=== PATIENT | male | born 1950 | race Caucasian/White ===

== ENCOUNTER → 2016-04-28 | Outpatient (CLI) | payer BC, OTHER ==
--- NOTE | 2016-04-30 05:56 | SLEEPCENT ---
DATE OF PROCEDURE: 04/28/2016 ORDERED BY: ROCK Knight Nocturnal polysomnography was performed for the titration of pressure therapy in this patient with obstructive sleep apnea syndrome, apnea hypopnea index of 16. For testing, a ResMed Quattro full face mask of medium size was used. 4 cm of water pressure were applied to the circuit and the lights were extinguished. 8 hours and 1 minute of data were reviewed. There were 435 minutes of sleep identified. Sleep latency was prolonged at 19 minutes. Rapid eye movement (REM) latency was prolonged about 170 minutes. Sleep architecture improved over the course of the study with optimal pressure therapy. Overall sleep efficiency was 92.3%. There were 2 REM periods appreciated. The patient's electrocardiogram (EKG) showed a sinus rhythm with an average heart rate of 62 beats per minute. Occasional unifocal ventricular ectopic beats were seen. Electroencephalogram (EEG) showed reasonably normal waveforms for awake and sleep. Respiratory events were found palliated with a CPAP at a pressure of +10 with which the patient slept through REM without respiratory event of oxygen desaturation. Remaining measures of sleep physiology were normal. IMPRESSION: Obstructive sleep apnea syndrome (G47.33). RECOMMENDATION: Nightly use of pressure therapy 10 cm of water.
== END ==
LOC: M SLEEP 19:45
PROVIDERS: ATTEND Nurse Practitioner Adult Health
DX: G47.33 Obstructive sleep apnea (adult) (pediatric) (principal)

== ENCOUNTER → 2017-02-12 | Outpatient (CLI) | payer BC, OTHER, MEDICARE ==
[2017-02-12 09:17] LABS: MEAN CORPUSCULAR HEMOGLOBIN 29.4 pg (27.0-33.0); MEAN CORPUSCULAR HGB CONC 34.2 g/dl (32.0-36.5); PLATELET COUNT, AUTOMATED 203 10^3/uL (150-450); RED CELL DISTRIBUTION WIDTH 13.2 % (11.5-14.5); WHITE BLOOD COUNT 4.2 10^3/uL (4.0-10.0)
[2017-02-12 09:47] LABS: ALBUMIN 3.9 GM/DL (3.2-5.2); ALBUMIN/GLOBULIN RATIO 1.44 (1.00-1.93); BILIRUBIN,TOTAL 0.8 MG/DL (0.2-1.0); CALCIUM LEVEL 9.8 MG/DL (8.8-10.2); CREATININE FOR GFR 1.36 MG/DL (0.70-1.30); POTASSIUM SERUM 4.5 MEQ/L (3.5-5.1); THYROXINE (T4) 7.5 UG/DL (4.5-12.0); TOTAL PROTEIN 6.6 GM/DL (6.4-8.2)
--- NOTE | 2017-02-12 09:48 | REP ---
Chest two views HISTORY: weakness Comparison: 02/05/2016 The lungs are clear. The heart is normal in size. The pulmonary vasculature is normal in appearance. Degenerative change is present in the thoracic spine. IMPRESSION: No acute disease. Signed by Elliott Anderson MD 02/12/2017 09:39 A
--- NOTE | 2017-02-12 20:12 | ECGEPIP ---
Stationary ECG Study [facility] Test Date: 2017-02-12 Pat Name: KAITLYN CHAKRABORTY Department: Room: - Gender: M [employer] Supervisor: RACHELLE : 1950 Requested By: Jalen Flores Order Number: [id number] Reading MD: Halle Ugalde Measurements Intervals [place] Rate: 59 P: 50 [place]: 134 QRS: -5 QRSD: 105 T: 17 QT: 410 QTc: 406 Interpretive Statements SINUS BRADYCARDIA WITH OCCASIONAL SUPRAVENTRICULAR PREMATURE COMPLEXES RIGHT VENTRICULAR CONDUCTION DELAY SIMILAR TO 02/05/16 Electronically Signed On 02-12-2017 20:12:08 EST by Halle Ugalde
== END ==
LOC: M LAB 08:23
PROVIDERS: ATTEND Family Medicine
DX: R53.83 Other fatigue (principal)

== ENCOUNTER → 2017-11-03 | Outpatient (CLI) | payer BC, OTHER, MEDICARE ==
[2017-11-03 07:31] LABS: HEMATOCRIT 44.3 % (42.0-52.0); HEMOGLOBIN 15.2 g/dl (13.5-17.5); MEAN CORPUSCULAR HEMOGLOBIN 29.9 pg (27.0-33.0); MEAN CORPUSCULAR HGB CONC 34.3 g/dl (32.0-36.5); PLATELET COUNT, AUTOMATED 201 10^3/uL (150-450); RED BLOOD COUNT 5.09 10^6/uL (4.30-6.10); RED CELL DISTRIBUTION WIDTH 12.9 % (11.5-14.5); WHITE BLOOD COUNT 4.4 10^3/uL (4.0-10.0)
[2017-11-03 07:46] LABS: ESTIMATED AVERAGE GLUCOSE 123 MG/DL (60-110); HEMOGLOBIN A1c 5.9 %
[2017-11-03 08:07] LABS: ALBUMIN 3.9 GM/DL (3.2-5.2); ALKALINE PHOSPHATASE 51 U/L (45-117); ALT/SGPT 63 U/L (12-78); ANION GAP 7 MEQ/L (8-16); AST/SGOT 22 U/L (7-37); BILIRUBIN,TOTAL 0.7 MG/DL (0.2-1.0); BLOOD UREA NITROGEN 17 MG/DL (7-18); CALCIUM LEVEL 9.1 MG/DL (8.8-10.2); CARBON DIOXIDE LEVEL 33 MEQ/L (21-32); CHLORIDE LEVEL 100 MEQ/L (98-107); CHOLESTEROL LEVEL 162 MG/DL (<200); CHOLESTEROL RISK RATIO 3.375 (<5); CREATININE FOR GFR 1.31 MG/DL (0.70-1.30); GLOMERULAR FILTRATION RATE 58.3 (>49); GLUCOSE, FASTING 111 MG/DL (70-100); HDL CHOLESTEROL 48 MG/DL (>40); IRON (FE) 96 UG/DL (65-175); LDL CHOLESTEROL 87.6 MG/DL (<100); NON-HDL-C 114 MG/DL; PERCENT SATURATION 23.8 % (19.7-50.0); POTASSIUM SERUM 4.2 MEQ/L (3.5-5.1); PROSTATIC SPECIFIC AG MONITOR 1.38 NG/ML (< 4.0); SODIUM LEVEL 140 MEQ/L (136-145); THYROXINE (T4) 8.2 UG/DL (4.5-12.0); TOTAL IRON BINDING CAPACITY 404 UG/DL (250-450); TOTAL PROTEIN 6.5 GM/DL (6.4-8.2); TRIGLYCERIDES LEVEL 132 MG/DL (<150)
[2017-11-03 09:59] LABS: TESTOSTERONE 215 NG/DL (241-827); TOTAL 25(OH) VITAMIN D 51.5 NG/ML (30.0-100.0); TOTAL T3 92.9 NG/DL (60.0-181.0)
== END ==
LOC: M LAB 07:06
DX: I10 Essential (primary) hypertension (principal); E11.9 Type 2 diabetes mellitus without complications; R53.83 Other fatigue; N40.0 Benign prostatic hyperplasia without lower urinary tract symptoms
CPT/HCPCS: 83550

== ENCOUNTER → 2018-05-06 | Outpatient (CLI) | payer BC, OTHER, MEDICARE ==
[2018-05-08 00:07] LABS: TESTOSTERONE FREE (DIRECT) 10.6 pg/mL (6.6-18.1)
== END ==
LOC: M LAB 07:14
PROVIDERS: ATTEND Anesthesiology Pain Medicine
DX: E29.9 Testicular dysfunction, unspecified (principal)

== ENCOUNTER → 2018-09-06 | Outpatient (CLI) | payer BC, OTHER, MEDICARE ==
[2018-09-06 07:41] LABS: HEMATOCRIT 43.5 % (42.0-52.0); HEMOGLOBIN 14.9 g/dl (13.5-17.5); MEAN CORPUSCULAR HEMOGLOBIN 29.2 pg (27.0-33.0); MEAN CORPUSCULAR HGB CONC 34.3 g/dl (32.0-36.5); MEAN CORPUSCULAR VOLUME 85.3 fl (80.0-96.0); PLATELET COUNT, AUTOMATED 193 10^3/uL (150-450)
[2018-09-06 08:19] LABS: ALBUMIN 3.8 GM/DL (3.2-5.2); ALT/SGPT 55 U/L (12-78); BILIRUBIN,TOTAL 0.6 MG/DL (0.2-1.0); BLOOD UREA NITROGEN 16 MG/DL (7-18); CALCIUM LEVEL 9.6 MG/DL (8.8-10.2); CARBON DIOXIDE LEVEL 32 MEQ/L (21-32); CHLORIDE LEVEL 98 MEQ/L (98-107); CHOLESTEROL LEVEL 198 MG/DL (<200); CHOLESTEROL RISK RATIO 3.735 (<5); CREATININE FOR GFR 1.24 MG/DL (0.70-1.30); GLOMERULAR FILTRATION RATE > 60.0 (>49); GLUCOSE, FASTING 123 MG/DL (70-100); HDL CHOLESTEROL 53 MG/DL (>40); LDL CHOLESTEROL 125 MG/DL (<100); NON-HDL-C 145 MG/DL; POTASSIUM SERUM 4.6 MEQ/L (3.5-5.1); PROSTATIC SPECIFIC AG MONITOR 1.48 NG/ML (< 4.00); SODIUM LEVEL 137 MEQ/L (136-145); TOTAL PROTEIN 6.6 GM/DL (6.4-8.2); TRIGLYCERIDES LEVEL 102 MG/DL (<150)
[2018-09-06 08:20] LABS: HEMOGLOBIN A1c 5.8 %
[2018-09-06 10:13] LABS: TESTOSTERONE 218 NG/DL (241-827)
--- NOTE | 2018-09-06 18:40 | ECGEPIP ---
[facility] Test Date: 2018-09-06 Pat Name: KAITLYN CHAKRABORTY Department: Room: - Gender: Male Chief Lifestyle Officer: BRAULIO : 1950 Requested By: Jalen Flores Order Number: [id number] Reading MD: Zack Strauss Measurements Intervals [place] Rate: 63 P: 68 [place]: 152 QRS: QRSD: 114 T: QT: 412 QTc: 423 Interpretive Statements Normal sinus rhythm Incomplete RBBB Nonspecific inferior ST/T-wave abnormalities. No significant change from 02/12/17. Electronically Signed on 09-06-2018 18:39:53 EDT by Zack Strauss
--- NOTE | 2018-09-07 04:06 | REP ---
Clinical: Right hip pain and sciatica. Technique: Frontal view of the pelvis with neutral and frog lateral views of the bilateral hips. Findings: Diffuse enthesopathy is appreciated throughout the pelvis and bilateral hips. Hip joint spaces are symmetric and relatively normal. Increased sclerosis to the acetabular rim with marginal osteophyte formation is appreciated. Small periarticular calcifications are identified bilaterally. No acute fracture dislocation. Impression: Enthesopathy and moderate symmetric degenerative changes. Electronically Signed by Femi Avelar MD 09/07/2018 03:58 A
--- NOTE | 2018-09-07 04:09 | REP ---
Clinical: Back pain. Sciatica. Technique: AP, lateral, bilateral oblique and coned-down views of the lumbosacral spine. Findings: Moderate/early advanced multilevel degenerative disc osteophyte complexes noted throughout the visualized lower thoracic and lumbosacral spine. Findings include osteophytosis, endplate sclerosis, disc space narrowing, and hypertrophic facet changes. No acute fracture / compression injury. No obvious spondylolysis or spondylolisthesis. Impression: Multilevel degenerative spondylosis through the lower thoracic and lumbosacral spine. Electronically Signed by Femi Avelar MD 09/07/2018 04:01 A
--- NOTE | 2018-09-07 04:10 | REP ---
Clinical: Hypertension and fatigue . Comparison: 02/12/2017 . Technique: PA and lateral. Findings: The mediastinum and cardiac silhouette are normal. The lung lakhani are clear and without acute consolidation, effusion, or pneumothorax. Degenerative changes of the thoracic spine noted. Impression: 1. No acute cardiopulmonary process. Electronically Signed by Femi Avelar MD 09/07/2018 04:02 A
== END ==
LOC: M LAB 06:58
PROVIDERS: ATTEND Family Medicine
DX: I10 Essential (primary) hypertension (principal); E11.9 Type 2 diabetes mellitus without complications; N40.0 Benign prostatic hyperplasia without lower urinary tract symptoms; R53.83 Other fatigue; M76.891 Other specified enthesopathies of right lower limb, excluding foot; M76.892 Other specified enthesopathies of left lower limb, excluding foot; M54.30 Sciatica, unspecified side; M47.814 Spondylosis without myelopathy or radiculopathy, thoracic region; M47.817 Spondylosis without myelopathy or radiculopathy, lumbosacral region; I45.10 Unspecified right bundle-branch block

== ENCOUNTER → 2019-10-08 | Outpatient (CLI) | payer BC, OTHER, MEDICARE ==
[2019-10-08 08:16] LABS: HEMATOCRIT 44.3 % (42.0-52.0); HEMOGLOBIN 15.3 g/dl (13.5-17.5); MEAN CORPUSCULAR HEMOGLOBIN 29.4 pg (27.0-33.0); MEAN CORPUSCULAR HGB CONC 34.5 g/dl (32.0-36.5); MEAN CORPUSCULAR VOLUME 85.2 fl (80.0-96.0); PLATELET COUNT, AUTOMATED 197 10^3/uL (150-450); WHITE BLOOD COUNT 4.6 10^3/uL (4.0-10.0)
[2019-10-08 08:52] LABS: ALBUMIN 3.6 GM/DL (3.2-5.2); BILIRUBIN,TOTAL 0.5 MG/DL (0.2-1.0); CALCIUM LEVEL 9.3 MG/DL (8.8-10.2); CHOLESTEROL RISK RATIO 4.163 (<5); CREATININE FOR GFR 1.27 MG/DL (0.70-1.30); POTASSIUM SERUM 4.1 MEQ/L (3.5-5.1); THYROID STIMULATING HORMONE 1.76 uIU/ML (0.358-3.740); TOTAL PROTEIN 6.5 GM/DL (6.4-8.2)
[2019-10-08 08:56] LABS: HEMOGLOBIN A1c 6.2 %
[2019-10-10 08:24] LABS: TOTAL 25(OH) VITAMIN D 91.8 NG/ML (30.0-100.0)
== END ==
LOC: M LAB 07:55
PROVIDERS: ATTEND Family Medicine
DX: I10 Essential (primary) hypertension (principal)
CPT/HCPCS: 36415; 80053; 80061; 82306; 83036; 84403; 84443; 85027; G0103

== ENCOUNTER 2020-02-07 01:59 | Inpatient (IN) | payer BC, OTHER, MEDICARE ==
[~2020-02-07] VITALS: Ht 172.7 cm; Wt 95.2 kg
[2020-02-07] MEDS ORDERED: [UNRECOGNIZED DRUG - CODE] (02:44)
[2020-02-07] MEDS ORDERED: METF500T13 (02:44)
[2020-02-07] MEDS ORDERED: DORZ2SOL5 (02:44)
[2020-02-07] MEDS ORDERED: ATOR1TAB21 (02:44)
[2020-02-07] MEDS ORDERED: TRIA37.53 (02:44)
[2020-02-07] MEDS ORDERED: BIMA01SOL (02:44)
[2020-02-07] MEDS ORDERED: VIIB20TA (02:44)
[2020-02-07] MEDS ORDERED: ARIP1TAB4 (02:44)
[2020-02-07] MEDS ORDERED: AZEL1SPR3 ×2 (02:44→03:51)
[2020-02-07] MEDS ORDERED: ECOT81TA5 PO (02:47)
[2020-02-07] MEDS ORDERED: ABIL1TAB13 PO (03:51)
[2020-02-07] MEDS ORDERED: ATOR1TAB21 PO (03:51)
[2020-02-07] MEDS ORDERED: VIIB20TA PO (03:51)
[2020-02-07] MEDS ORDERED: [UNRECOGNIZED DRUG - CODE] PO (03:51)
[2020-02-07] MEDS ORDERED: BIMA01SOL OU (03:51)
[2020-02-07] MEDS ORDERED: CALC-211 PO (03:51)
[2020-02-07] MEDS ORDERED: TRIA37.53 PO (03:51)
[2020-02-07] MEDS ORDERED: FLON1SPR (03:51)
[2020-02-07] MEDS ORDERED: L-AR1000 PO ×2 (03:51→03:53)
[2020-02-07] MEDS ORDERED: METF-839 PO (03:51)
[2020-02-07] MEDS ORDERED: ASPI-161 PO (03:51)
[2020-02-07] MEDS ORDERED: VITMTA PO (03:51)
[2020-02-07] MEDS ORDERED: COSO1SOL3 OU (03:51)
[2020-02-07] MEDS ORDERED: D31000TA2 PO (03:53)
[2020-02-07] MEDS ORDERED: GNP1000T11 PO (03:53)
[2020-02-07] MEDS ORDERED: OMEG10002 PO (03:53)
[2020-02-07] MEDS ORDERED: COQ1100C5 PO (03:53)
[2020-02-07 04:07] LABS: BASO % 0.8 % (0.0-1.0); EOS # 0.1 10^3/uL (0.0-0.5); HEMOGLOBIN 13.1 g/dl (13.5-17.5); LYMPH # 1.1 10^3/uL (1.5-5.0); LYMPH % 26.9 % (24.0-44.0); MEAN CORPUSCULAR HEMOGLOBIN 28.5 pg (27.0-33.0); MEAN CORPUSCULAR HGB CONC 32.8 g/dl (32.0-36.5); MONO # 0.4 10^3/uL (0.0-0.8); MONO % 10.7 % (0.0-5.0); NEUTROPHILS # 2.3 10^3/uL (1.5-8.5); NEUTROPHILS % 58.3 % (36.0-66.0); PLATELET COUNT, AUTOMATED 189 10^3/uL (150-450); WHITE BLOOD COUNT 3.9 10^3/uL (4.0-10.0)
[2020-02-07 04:21] LABS: INR 0.91; PROTHROMBIN TIME 12.4 SECONDS (12.5-14.3)
[2020-02-07 04:22] LABS: PARTIAL THROMBOPLASTIN TIME 21.7 SECONDS (24.2-38.5)
[2020-02-07 04:35] LABS: ALBUMIN 3.1 GM/DL (3.2-5.2); ALT/SGPT 31 U/L (12-78); BILIRUBIN,DIRECT 0.1 MG/DL (0.0-0.2); BILIRUBIN,TOTAL 0.4 MG/DL (0.2-1.0); BLOOD UREA NITROGEN 19 MG/DL (7-18); CALCIUM LEVEL 8.8 MG/DL (8.8-10.2); CARBON DIOXIDE LEVEL 25 MEQ/L (21-32); CHLORIDE LEVEL 105 MEQ/L (98-107); CPK CREATINE PHOSPHOKINASE 114 U/L (39-308); CREATININE FOR GFR 1.04 MG/DL (0.70-1.30); GLOMERULAR FILTRATION RATE > 60.0 (>49); GLUCOSE, FASTING 116 MG/DL (70-100); LIPASE 74 U/L (73-393); MB/CK RELATIVE INDEX 1.75 (< OR =4); SODIUM LEVEL 138 MEQ/L (136-145); TROPONIN I < 0.02 NG/ML (< 0.10)
[2020-02-07] MEDS ORDERED: ISOVUE-370 76% 100ML VIAL As Ordered ONE (04:49)
--- NOTE | 2020-02-07 05:28 | REPVR ---
PROCEDURE INFORMATION: Exam: CT Abdomen And Pelvis With Contrast Exam date and time: 02/07/2020 4:58 AM Age: 69 years old Clinical indication: Abdominal pain; Localized; Left lower quadrant (llq); Additional info: Llq abd pain, hematachezia TECHNIQUE: Imaging protocol: Computed tomography of the abdomen and pelvis with intravenous contrast. Radiation optimization: All CT scans at this facility use at least one of these dose optimization techniques: automated exposure control; mA and/or kV adjustment per patient size (includes targeted exams where dose is matched to clinical indication); or iterative reconstruction. Contrast material: ISOVUE 370; Contrast volume: 100 ml; Contrast route: INTRAVENOUS (IV); COMPARISON: CR HIPS BILAT W-AP PELVIS 09/06/2018 7:18 AM FINDINGS: Lungs: There is mild bilateral posterior dependent lung atelectasis. Mediastinal space: There is a small sliding hiatal hernia. Liver: Normal. No mass. Gallbladder and bile ducts: Normal. No calcified stones. No ductal dilation. Pancreas: Normal. No ductal dilation. Spleen: Normal. No splenomegaly. Adrenal glands: Normal. No mass. Kidneys and ureters: Normal. No hydronephrosis. Stomach and bowel: There is marked descending and sigmoid colon diverticulosis. There is also mild right colonic diverticulosis. There is mild stranding adjacent to the sigmoid colon. Appendix: No evidence of appendicitis. Intraperitoneal space: Unremarkable. No free air. No significant fluid collection. Vasculature: Coronary vascular calcifications versus stent seen. There is moderate aortic mural calcifications. Lymph nodes: Unremarkable. No enlarged lymph nodes. Urinary bladder: Unremarkable as visualized. Reproductive: Unremarkable as visualized. Bones/joints: There is multilevel lumbar spine facet arthrosis. There is multilevel anterior lower thoracic spine bulky osteophytes. Soft tissues: There is a small right inguinal fat containing hernia. IMPRESSION: 1. Significant descending and sigmoid colon and mild right colonic diverticulosis with CT findings of mild sigmoid diverticulitis. No free air or abscess formation seen at this time. 2. Small right inguinal fat containing hernia. 3. Small sliding hiatal hernia. Electronically signed by: Gonzalez Brasher On 02/07/2020 05:27:23 AM
[2020-02-07] MEDS ORDERED: CIPROFLOXACIN 400 MG in IV 1 EA IV ONE (05:45)
[2020-02-07] MEDS ORDERED: metroNIDAZOLE 500 MG in IV 1 EA IV ONE (05:45)
--- NOTE | 2020-02-07 05:58 | HPEPDOC ---
[facility] Medical History & Physical Date of Admission Feb 07, 2020 Date of Service: Feb 07, 2020 Primary Care Physician: Jalen Parsons Attending Physician: ELIO PIZARRO MD History and Physical TIME OF SERVICE: 537am CHIEF COMPLAINT: Bloody diarrhea HISTORY OF PRESENT ILLNESS: This 69-year-old gentleman been having cramping lower abdominal pain for the last few days. Yesterday evening he presented to the ER with complaints of one episode of a large bowel movement with large amounts of blood. In the ER, he had another episode of blood mixed with stools. He denied having vomiting, fever, chills, rash, chest pain, dyspnea, or any other acute complaints. REVIEW OF SYSTEMS: 12 point review of systems negative except as listed in HPI PAST MEDICAL/ SURGICAL HISTORY: Chronic hypertension Prediabetes Variceal ligation Tonsillectomy Glaucoma SOCIAL HISTORY: He doesn't smoke He drinks alcohol 4 times per week He exercises 5 days a week FAMILY HISTORY: Glaucoma ALLERGIES: Please see below. HOME MEDICATIONS: Please see below. PHYSICAL EXAMINATION: Vital Signs Date Time Temp Pulse Resp B/P (MAP) Pulse Ox O2 Delivery O2 Flow Rate FiO2 02/07/20 01:59 97.4 67 16 142/87 (105) 98 Room Air GEN: well-nourished / well developed/ NAD INTEGUMENT: not flushed HEENT: lips acyanotic /mucus membranes moist and pink CVS: RRR/NMRG/ no JVP / radial pulses intact / no lower extremity edema LUNGS: able to speak full sentences without stopping to take a breath / no coughing / lungs are clear to auscultation bilaterally on room air ABDOMEN: Contour ( obese) / soft & tender with palpation of the lower abdomen MSK/EXTREMITIES: NCAT / range of motion intact in all 4 extremities NEURO: CN 2-12 are grossly intact / speech is not dysarthric PSYCH: alert and oriented to person place and time/ able to understand and follow all commands LABORATORY DATA: 02/07/20 04:00 Laboratory Tests 2 02/07/20 03:16: Coronavirus (COVID-19)(PCR) NEGATIVE 02/07/20 04:00: Immature Granulocyte % (Auto) 0.3, Neutrophils (%) (Auto) 58.3, Lymphocytes (%) (Auto) 26.9, Monocytes (%) (Auto) 10.7H, Eosinophils (%) (Auto) 3.0, Basophils (%) (Auto) 0.8, Neutrophils # (Auto) 2.3, Lymphocytes # (Auto) 1.1L, Monocytes # (Auto) 0.4, Eosinophils # (Auto) 0.1, Basophils # (Auto) 0.0, Nucleated Red Blood Cells % (auto) 0.0, Prothrombin Time 12.4, Prothromb Time International Ratio 0.91, Activated Partial Thromboplast Time 21.7L, Anion Gap 8, Glomerular Filtration Rate > 60.0, Calcium Level 8.8, Total Bilirubin 0.4, Direct Bilirubin 0.1, Aspartate Amino Transf (AST/SGOT) 16, Alanine Aminotransferase (ALT/SGPT) 31, Alkaline Phosphatase 61, Total Creatine Kinase 114, Creatine Kinase MB 2.0, Creatine Kinase MB Relative Index 1.75, Troponin I < 0.02, Total Protein 6.0L, Albumin 3.1L, Albumin/Globulin Ratio 1.1, Lipase 74 IMAGING: CT abdomen and pelvis "IMPRESSION: 1. Significant descending and sigmoid colon and mild right colonic diverticulosis with CT findings of mild sigmoid diverticulitis. No free air or abscess formation seen at this time. 2. Small right inguinal fat containing hernia. 3. Small sliding hiatal hernia." MICROBIOLOGY: Blood cultures pending... ASSESSMENT: Mr. Mobley is a 69 yr is a 69 yr old w a hx of Chronic HTN, Pre-DM, Diverticulitis and IBS who presented with abdominal pain and 2 large bloody BMs and will be admitted for acute diverticulitis. PLAN: 1 . Acute Diverticulitis NO SIRS criterial Plan: admit to medical floor / CLD / PO metronidazole / f/u repeat Hg / hold ASA 2. Chronic hypertension Plan: triamterene & HTCZ 3. Prediabetes? Plan: diabetic diet / f/u accuchecks & A1C / hypoglycemia protocol / sliding scale insulin / hold oral anti-glycemics 4. Glaucoma Plan: Cosopt eye drops 5. Obesity BMI 32.2 complicates care Plan: f/u w PCP for STOP BANG questionnaire DVT PROPHYLAXIS: SCDs DISPOSITION: home after less than 2 midnight's stay Home Medications Scheduled Arginine HCl (l-Arginine) 1,000 Mg Tablet, 1,000 MG PO DAILY Aripiprazole (Abilify) 2 Mg Tablet, 2 MG PO DAILY Aspirin (Aspirin EC) 81 Mg Tablet.dr, 81 MG PO DAILY Atorvastatin Calcium (Atorvastatin Calcium) 20 Mg Tablet, 20 MG PO QHS Azelastine HCl (Azelastine HCl) 0.1% [place].pump, 1 SPRAY NA DAILY Bimatoprost (Lumigan) 0.01% 2.5ML Drops, 1 DROP OU QHS Calcium Carbonate (Calcium) 600 Mg Tablet, 600 MG PO DAILY Cholecalciferol (Vitamin D3) (Vitamin D3) 1,000 Unit Tablet, 1,000 UNITS PO DAILY Dorzolamide HCl/Timolol Maleat (Cosopt Eye Drops) 10 Ml Drops, 1 DROP OU BID Fluticasone Propionate (Flonase Allergy Relief) 9.9 Ml [place].susp, 1 SPRAY NA DAILY Glucosamine Sulfate Dipot Chlr (Glucosamine) 1,000 Mg Tablet, 1,000 MG PO DAILY Metformin HCl (Metformin HCl) 500 Mg Tablet, 500 MG PO DAILY Multivitamins (Thera M Plus Tablet) 1 Each Tablet, 1 TAB PO DAILY [place]-3/Dha/Epa/Fish Oil (Fish Oil 1,000 mg Softgel) 1 Each Capsule, 1 CAP PO BID Testosterone Propionate (Testosterone Propionate) 5,000 Gm Powder, 2 CAP PO BID Triamterene/Hydrochlorothiazid (Triamterene-Hctz 37.5-25 mg Cp) 1 Each Capsule, 1 CAP PO DAILY Ubidecarenone (Co Q-10) 100 Mg Capsule, 100 MG PO DAILY Vilazodone HCl (Viibryd) 20 Mg Tablet, 20 MG PO DAILY Allergies Coded Allergies: Sulfa (Sulfonamide Antibiotics) (Verified Allergy, Unknown, hives, 02/07/20) A-FIB/CHADSVASC A-FIB History Current/History of A-Fib/PAF?: No Current PO Anticoag Therapy: No ELIO PIZARRO MD Feb 07, 2020 05:58
[2020-02-07] MEDS ORDERED: ACETAMINOPHEN TAB 650MG DOSE (2X325MG) PO PRN (06:00)
[2020-02-07] MEDS ORDERED: MAALOX 30 ML SUSP *UDC PO PRN (06:00)
[2020-02-07] MEDS ORDERED: MOM 30ML SUSPENSION UDC PO PRN (06:00)
[2020-02-07 06:30] VITALS: BP 142/82
[2020-02-07] MEDS: HumaLOG INSULIN (NovoLOG) PER UNIT SC SCH ×3 (07:30→17:30)
[2020-02-07] MEDS ORDERED: GLUCOSE 4GM CHEW TABLET PO PRN (08:00)
[2020-02-07] MEDS ORDERED: GLUCAGON INJ 1MG VIAL SC PRN (08:00)
[2020-02-07] MEDS ORDERED: metFORMIN (GLUCOPHAGE) 500 MG TAB PO SCH (08:00)
[2020-02-07] MEDS ORDERED: DEXTROSE 50% 50 ML SYRINGE IV PRN (08:00)
[2020-02-07] MEDS: ARIPiprazole 2 MG TAB PO SCH (09:00)
--- NOTE | 2020-02-07 09:34 | ECGEPIP ---
[facility] - ED Test Date: 2020-02-07 Pat Name: KAITLYN CHAKRABORTY Department: Room: [place] [address] Gender: Male Rehab Services Aide: john : 1950 Requested By: CLIVE Barnes Order Number: [id number] Reading MD: Bethel Segura Measurements Intervals [place] Rate: 64 P: 11 [place]: 146 QRS: 73 QRSD: 115 T: 64 QT: 418 QTc: 434 Interpretive Statements SINUS RHYTHM INCOMPLETE RIGHT BUNDLE BRANCH BLOCK SIMILAR TO 09/06/18 Electronically Signed on 02-07-2020 9:33:46 EST by Bethel Segura
[2020-02-07] MEDS: COSOPT OCUMETER PLUS 10ML (DORZOLAMIDE/TIMOLOL) OU SCH ×2 (09:52→20:03)
[2020-02-07] MEDS: DYAZIDE 37.5/25 CAP (TRIAM/HCTZ) PO SCH (09:52)
[2020-02-07] MEDS: ENOXAPARIN 40MG/0.4ML SYRINGE (J1650 PER 10MG) SC SCH (09:53)
[2020-02-07] MEDS: NS 1,000 ML IV SCH ×2 (11:59→20:02)
[2020-02-07] MEDS: FLUTICASONE PROP 0.05% NASAL SPRAY 16 GM (FLONASE) SCH (12:00)
[2020-02-07] MEDS: OMEGA-3 1000MG CAPSULE PO SCH ×2 (12:00→20:02)
[2020-02-07] MEDS: VITAMIN D 1,000 INTERNATIONAL UNITS TABLET PO SCH (12:00)
[2020-02-07] MEDS: MULTIVITAMINS/MINERALS THERAP 1 TAB PO SCH (12:00)
[2020-02-07] MEDS: AZELASTINE 137MCG NASAL SPY 30 ML (ASTELIN) SCH (12:00)
--- NOTE | 2020-02-07 12:17 | IPNPDOC ---
Text Note Date of Service The patient was seen on 02/07/20. NOTE Subjective:. Patient stated that he had a bowel movement with blood in the mo rning. He denied fever, chills, nausea, vomiting, diarrhea or dysuria Objective: GENERAL APPEARANCE: NAD HEENT: no scleral icterus, no JVD, EOMI CARDIOVASCULAR: S1S2 LUNGS: CTA ABDOMEN: Mild tenderness over left lower quadrant MUSCULOSKELETAL: no cyanosis, no swelling INTEGUMENT: no generalized palor NEUROLOGICAL: cranial nerve function from 2-12 intact intact, follows commands, speech not dysarthric Patient is a 69 yr is a 69 yr old w a hx of Chronic HTN, Pre-DM, Diverticulitis and IBS who presented with abdominal pain and 2 large bloody BMs and will be admitted for acute diverticulitis. PLAN: 1 . Acute Diverticulitis Continue to therapy with metronidazole IV and ciprofloxacin IV Continue clear liquid diet 2. Chronic hypertension Continue home cardioprotective medications 3. Prediabetes? Continue metformin 4. Glaucoma Plan: Cosopt eye drops 5. Obesity BMI 32.2 complicates care DVT PROPHYLAXIS: SCDs VS,Fishbone, I+O VS, Fishbone, I+O Laboratory Tests 02/07/20 04:00 02/07/20 10:17 Vital Signs Date Time Temp Pulse Resp B/P (MAP) Pulse Ox O2 Delivery O2 Flow Rate FiO2 02/07/20 06:30 97.9 67 16 142/82 (102) 97 Room Air YFN SALDANA DO Feb 07, 2020 12:17
[2020-02-07] MEDS: metroNIDAZOLE (FLAGYL) 500MG TABLET PO SCH ×2 (13:39→21:44)
[2020-02-07 14:00] VITALS: BP 139/81
[2020-02-07] MEDS: CIPROFLOXACIN 400 MG in IV 1 EA IV SCH (18:47)
[2020-02-07] MEDS ORDERED: ATORVASTATIN 20 MG TAB PO SCH (21:00)
[2020-02-07] MEDS ORDERED: HumaLOG INSULIN (NovoLOG) PER UNIT SC SCH (21:00)
[2020-02-07 22:00] VITALS: BP 137/81
[2020-02-08] MEDS: CIPROFLOXACIN 400 MG in IV 1 EA IV SCH (05:53)
[2020-02-08] MEDS: metroNIDAZOLE (FLAGYL) 500MG TABLET PO SCH (05:54)
[2020-02-08 06:00] VITALS: BP 105/66
[2020-02-08 06:02] LABS: HEMATOCRIT 38.6 % (42.0-52.0); HEMOGLOBIN 12.7 g/dl (13.5-17.5); MEAN CORPUSCULAR HEMOGLOBIN 28.7 pg (27.0-33.0); MEAN CORPUSCULAR HGB CONC 32.9 g/dl (32.0-36.5); MEAN CORPUSCULAR VOLUME 87.1 fl (80.0-96.0); PLATELET COUNT, AUTOMATED 179 10^3/uL (150-450); RED BLOOD COUNT 4.43 10^6/uL (4.30-6.10); WHITE BLOOD COUNT 3.7 10^3/uL (4.0-10.0)
[2020-02-08 06:33] LABS: BLOOD UREA NITROGEN 10 MG/DL (7-18); CALCIUM LEVEL 8.9 MG/DL (8.8-10.2); CARBON DIOXIDE LEVEL 27 MEQ/L (21-32); CHLORIDE LEVEL 104 MEQ/L (98-107); CREATININE FOR GFR 0.98 MG/DL (0.70-1.30); GLOMERULAR FILTRATION RATE > 60.0 (>49); GLUCOSE, FASTING 113 MG/DL (70-100); POTASSIUM SERUM 3.9 MEQ/L (3.5-5.1); SODIUM LEVEL 136 MEQ/L (136-145)
[2020-02-08] MEDS: HumaLOG INSULIN (NovoLOG) PER UNIT SC SCH (07:30)
[2020-02-08] MEDS: DYAZIDE 37.5/25 CAP (TRIAM/HCTZ) PO SCH (08:23)
[2020-02-08] MEDS: OMEGA-3 1000MG CAPSULE PO SCH (08:23)
[2020-02-08] MEDS: MULTIVITAMINS/MINERALS THERAP 1 TAB PO SCH (08:23)
[2020-02-08] MEDS: ARIPiprazole 2 MG TAB PO SCH (08:23)
[2020-02-08] MEDS: VITAMIN D 1,000 INTERNATIONAL UNITS TABLET PO SCH (08:23)
[2020-02-08] MEDS: ENOXAPARIN 40MG/0.4ML SYRINGE (J1650 PER 10MG) SC SCH (08:24)
[2020-02-08] MEDS: AZELASTINE 137MCG NASAL SPY 30 ML (ASTELIN) SCH (08:26)
[2020-02-08] MEDS: COSOPT OCUMETER PLUS 10ML (DORZOLAMIDE/TIMOLOL) OU SCH (08:27)
[2020-02-08] MEDS: FLUTICASONE PROP 0.05% NASAL SPRAY 16 GM (FLONASE) SCH (08:27)
[2020-02-08] MEDS: NS 1,000 ML IV SCH (08:32)
[2020-02-08] MEDS ORDERED: ASPIRIN 81 MG ENTERIC TAB PO SCH (09:00)
[2020-02-08] MEDS ORDERED: CIPR500T3 PO (10:16)
[2020-02-08] MEDS ORDERED: METR375C3 PO (10:16)
--- NOTE | 2020-02-08 12:51 | DS.PDOC ---
Discharge Summary General Date of Admission Feb 07, 2020 at 05:50 Date of Discharge 02/08/20 Discharge Summary PROCEDURES PERFORMED DURING STAY: [None]. ADMITTING DIAGNOSES: Acute Diverticulitis Chronic hypertension Prediabetes Glaucoma Obesity DISCHARGE DIAGNOSES: Acute Diverticulitis Chronic hypertension Prediabetes Glaucoma Obesity COMPLICATIONS/CHIEF COMPLAINT: Abdominal Pain. HISTORY OF PRESENT ILLNESS: Patient is a 69 yr is a 69 yr old w a hx of Chronic HTN, Pre-DM, Diverticulitis and IBS who presented with abdominal pain and 2 large bloody BMs and will be admitted for acute diverticulitis. HOSPITAL COURSE: During hospital stay following issue addressed 1 . Acute Diverticulitis Patient received therapy with metronidazole IV and ciprofloxacin IV 2. Chronic hypertension Continue home cardioprotective medications 3. Prediabetes? Continue metformin 4. Glaucoma Plan: Cosopt eye drops 5. Obesity BMI 32.2 complicates care DISCHARGE MEDICATIONS: Please see below. ALLERGIES: Please see below. PHYSICAL EXAMINATION ON DISCHARGE: VITAL SIGNS: Please see below. GENERAL APPEARANCE: NAD HEENT: no scleral icterus, no JVD, EOMI CARDIOVASCULAR: S1S2 LUNGS: CTA ABDOMEN: Mild tenderness over left lower quadrant MUSCULOSKELETAL: no cyanosis, no swelling INTEGUMENT: no generalized palor NEUROLOGICAL: cranial nerve function from 2-12 intact intact, follows commands, speech not dysarthric LABORATORY DATA: Please see below. IMAGING: [facility] NAME: KAITLYN CHAKRABORTY DATE OF : 1950 BUSINESS NUMBER: [id number] AGE: 69 SEX: M REPORT #: [id number] ROOM: ED TECHNOLOGIST: TKLOCK DOCTOR: CLIVE MARS DO Ordered for Date&Time: 02/07/20 0255 cc: [~ rep ct ivnm] Service Date&Time: 02/07/20 0458 This report is in Signed status. Interpretation performed by [facility]. Thank you for having your radiology procedures performed at [facility] RADIOLOGY REPORT Date&Time printed: [~ rep prt dt last] [~ rep prt tm last] Page 2 of [address] [address] RADIOLOGY REPORT This report is in Signed status. Interpretation performed by [facility]. Thank you for having your radiology procedures performed at [facility] RADIOLOGY REPORT Date&Time printed: [~ rep prt dt last] [~ rep prt tm last] Page 1 of 1 PROCEDURE INFORMATION: Exam: CT Abdomen And Pelvis With Contrast Exam date and time: 02/07/2020 4:58 AM Age: 69 years old Clinical indication: Abdominal pain; Localized; Left lower quadrant (llq); Additional info: Llq abd pain, hematachezia TECHNIQUE: Imaging protocol: Computed tomography of the abdomen and pelvis with intravenous contrast. Radiation optimization: All CT scans at this facility use at least one of these dose optimization techniques: automated exposure control; mA and/or kV adjustment per patient size (includes targeted exams where dose is matched to clinical indication); or iterative reconstruction. Contrast material: ISOVUE 370; Contrast volume: 100 ml; Contrast route: INTRAVENOUS (IV); COMPARISON: CR HIPS BILAT W-AP PELVIS 09/06/2018 7:18 AM FINDINGS: Lungs: There is mild bilateral posterior dependent lung atelectasis. Mediastinal space: There is a small sliding hiatal hernia. Liver: Normal. No mass. Gallbladder and bile ducts: Normal. No calcified stones. No ductal dilation. Pancreas: Normal. No ductal dilation. Spleen: Normal. No splenomegaly. Adrenal glands: Normal. No mass. Kidneys and ureters: Normal. No hydronephrosis. Stomach and bowel: There is marked descending and sigmoid colon diverticulosis. There is also mild right colonic diverticulosis. There is mild stranding adjacent to the sigmoid colon. Appendix: No evidence of appendicitis. Intraperitoneal space: Unremarkable. No free air. No significant fluid collection. Vasculature: Coronary vascular calcifications versus stent seen. There is moderate aortic mural calcifications. Lymph nodes: Unremarkable. No enlarged lymph nodes. Urinary bladder: Unremarkable as visualized. Reproductive: Unremarkable as visualized. Bones/joints: There is multilevel lumbar spine facet arthrosis. There is multilevel anterior lower thoracic spine bulky osteophytes. Soft tissues: There is a small right inguinal fat containing hernia. IMPRESSION: 1. Significant descending and sigmoid colon and mild right colonic diverticulosis with CT findings of mild sigmoid diverticulitis. No free air or abscess formation seen at this time. 2. Small right inguinal fat containing hernia. 3. Small sliding hiatal hernia. Electronically signed by: Tao Brasher On 02/07/2020 05:27:23 AM DD: TAO BRASHER MD 02/07/20 0458 DT: JON 02/07/20526 DS: ZONIA 02/07/20 05 [~ rep ct labl] PROGNOSIS: Fair ACTIVITY: [As tolerated]. DIET: Full liquid diet for 1-2 days ITEMS TO FOLLOWUP ON ON OUTPATIENT: Follow-up with bullet assembly press setter operator in 1 month for colonoscopy Follow-up with PCP in 3-5 days DISCHARGE CONDITION: [Stable]. TIME SPENT ON DISCHARGE: Greater than 20 minutes. Vital Signs/I&Os Vital Signs Date Time Temp Pulse Resp B/P (MAP) Pulse Ox O2 Delivery O2 Flow Rate FiO2 02/08/20 06:00 98.4 67 16 105/66 (79) 96 Room Air I&O- Last 24 Hours up to 6 AM 02/08/20 06:00 Intake Total 1950 ml Output Total 1150 ml Balance 800 ml Laboratory Data Labs 24H Laboratory Tests 2 02/07/20 17:07: Bedside Glucose (Misc Panel) 85 02/07/20 20:29: Bedside Glucose (Misc Panel) 114 02/08/20 05:40: Nucleated Red Blood Cells % (auto) 0.0, Anion Gap 5L, Glomerular Filtration Rate > 60.0, Calcium Level 8.9 CBC/BMP Laboratory Tests 02/08/20 05:40 FSBS Laboratory Tests Test 02/07/20 17:07 02/07/20 20:29 Range/Units Bedside Glucose (Misc Panel) 85 114 80-115 MG/DL Microbiology Microbiology 02/07/20 Blood Culture - Preliminary, Resulted No growth after 24 hours . All specim... 02/07/20 Blood Culture - Preliminary, Resulted No growth after 24 hours . All specim... Discharge Medications Scheduled Arginine HCl (l-Arginine) 1,000 Mg Tablet, 1,000 MG PO DAILY, (Reported) Aripiprazole (Abilify) 2 Mg Tablet, 2 MG PO DAILY, (Reported) Aspirin (Aspirin EC) 81 Mg Tablet.dr, 81 MG PO DAILY, (Reported) Atorvastatin Calcium (Atorvastatin Calcium) 20 Mg Tablet, 20 MG PO QHS, (Reported) Azelastine HCl (Azelastine HCl) 0.1% [place].pump, 1 SPRAY NA DAILY, (Reported) Bimatoprost (Lumigan) 0.01% 2.5ML Drops, 1 DROP OU QHS, (Reported) Calcium Carbonate (Calcium) 600 Mg Tablet, 600 MG PO DAILY, (Reported) Cholecalciferol (Vitamin D3) (Vitamin D3) 1,000 Unit Tablet, 1,000 UNITS PO DAILY, (Reported) Ciprofloxacin HCl (Ciprofloxacin HCl) 500 Mg Tablet, 1 TAB PO BID Dorzolamide HCl/Timolol Maleat (Cosopt Eye Drops) 10 Ml Drops, 1 DROP OU BID, (Reported) Fluticasone Propionate (Flonase Allergy Relief) 9.9 Ml [place].susp, 1 SPRAY NA DAILY, (Reported) Glucosamine Sulfate Dipot Chlr (Glucosamine) 1,000 Mg Tablet, 1,000 MG PO DAILY, (Reported) Metformin HCl (Metformin HCl) 500 Mg Tablet, 500 MG PO DAILY, (Reported) Metronidazole (Metronidazole) 375 Mg Capsule, 1 CAP PO TID Multivitamins (Thera M Plus Tablet) 1 Each Tablet, 1 TAB PO DAILY, (Reported) [place]-3/Dha/Epa/Fish Oil (Fish Oil 1,000 mg Softgel) 1 Each Capsule, 1 CAP PO BID, (Reported) Testosterone Propionate (Testosterone Propionate) 5,000 Gm Powder, 2 CAP PO BID, (Reported) Triamterene/Hydrochlorothiazid (Triamterene-Hctz 37.5-25 mg Cp) 1 Each Capsule, 1 CAP PO DAILY, (Reported) Ubidecarenone (Co Q-10) 100 Mg Capsule, 100 MG PO DAILY, (Reported) Vilazodone HCl (Viibryd) 20 Mg Tablet, 20 MG PO DAILY, (Reported) Allergies Coded Allergies: Sulfa (Sulfonamide Antibiotics) (Verified Allergy, Unknown, hives, 02/07/20) YFN SALDANA DO Feb 08, 2020 12:51
== END 2020-02-08 12:10 | disposition home or self-care (01) | DRG 244 ==
LOC: M ED 01:59 → M ED INP 05:50 → ENRESERV 06:03 → M MS5PR 06:41
PROVIDERS: ADMIT Internal Medicine; ATTEND Internal Medicine
DX: K57.33 Diverticulitis of large intestine without perforation or abscess with bleeding (principal); I10 Essential (primary) hypertension; R73.03 Prediabetes; H40.9 Unspecified glaucoma; Z20.828 Contact with and (suspected) exposure to other viral communicable diseases; E66.9 Obesity, unspecified; Z68.32 Body mass index [BMI] 32.0-32.9, adult; Z79.82 Long term (current) use of aspirin; Z79.84 Long term (current) use of oral hypoglycemic drugs; Z79.899 Other long term (current) drug therapy; Z88.2 Allergy status to sulfonamides

== ENCOUNTER → 2020-02-13 | Outpatient (CLI) | payer BC, OTHER, MEDICARE ==
[~2020-02-13] MED LIST: ABIL1TAB13 PO; ARIP1TAB4; ASPI-161 PO; ATOR1TAB21; ATOR1TAB21 PO; AZEL1SPR3; BIMA01SOL; BIMA01SOL OU; CALC-211 PO; CIPR500T3 PO; COQ1100C5 PO; COSO1SOL3 OU; D31000TA2 PO; DORZ2SOL5; ECOT81TA5 PO; FLON1SPR; GNP1000T11 PO; L-AR1000 PO; METF-839 PO; METF500T13; METR375C3 PO; OMEG10002 PO; TRIA37.53; TRIA37.53 PO; VIIB20TA; VIIB20TA PO; VITMTA PO; [UNRECOGNIZED DRUG - CODE]; [UNRECOGNIZED DRUG - CODE] PO
[2020-02-13 08:36] LABS: HEMATOCRIT 41.1 % (42.0-52.0); HEMOGLOBIN 13.4 g/dl (13.5-17.5); MEAN CORPUSCULAR HEMOGLOBIN 28.6 pg (27.0-33.0); MEAN CORPUSCULAR HGB CONC 32.6 g/dl (32.0-36.5); MEAN CORPUSCULAR VOLUME 87.6 fl (80.0-96.0); PLATELET COUNT, AUTOMATED 237 10^3/uL (150-450); RED BLOOD COUNT 4.69 10^6/uL (4.30-6.10)
== END ==
LOC: M LAB 07:40
PROVIDERS: ATTEND Internal Medicine
DX: Z79.899 Other long term (current) drug therapy (principal)

== ENCOUNTER → 2020-02-18 | Outpatient (CLI) | payer BC, OTHER, MEDICARE ==
[2020-02-18 09:42] LABS: HEMATOCRIT 40.7 % (42.0-52.0); HEMOGLOBIN 13.3 g/dl (13.5-17.5); MEAN CORPUSCULAR HEMOGLOBIN 28.2 pg (27.0-33.0); MEAN CORPUSCULAR HGB CONC 32.7 g/dl (32.0-36.5); MEAN CORPUSCULAR VOLUME 86.4 fl (80.0-96.0); PLATELET COUNT, AUTOMATED 233 10^3/uL (150-450); RED BLOOD COUNT 4.71 10^6/uL (4.30-6.10); WHITE BLOOD COUNT 3.8 10^3/uL (4.0-10.0)
[2020-02-18 10:02] LABS: HEMOGLOBIN A1c 5.3 %
[2020-02-18 10:10] LABS: ALBUMIN 3.8 GM/DL (3.2-5.2); ALT/SGPT 52 U/L (12-78); BILIRUBIN,TOTAL 0.6 MG/DL (0.2-1.0); BLOOD UREA NITROGEN 17 MG/DL (7-18); CALCIUM LEVEL 9.1 MG/DL (8.8-10.2); CARBON DIOXIDE LEVEL 32 MEQ/L (21-32); CHLORIDE LEVEL 99 MEQ/L (98-107); CHOLESTEROL LEVEL 246 MG/DL (<200); CHOLESTEROL RISK RATIO 4.823 (<5); GLOMERULAR FILTRATION RATE > 60.0 (>49); GLUCOSE, FASTING 107 MG/DL (70-100); HDL CHOLESTEROL 51 MG/DL (>40); LDL CHOLESTEROL 167 MG/DL (<100); NON-HDL-C 195 MG/DL; POTASSIUM SERUM 4.4 MEQ/L (3.5-5.1); SODIUM LEVEL 135 MEQ/L (136-145); TOTAL PROTEIN 6.5 GM/DL (6.4-8.2); TRIGLYCERIDES LEVEL 138 MG/DL (<150)
[2020-02-20 11:59] LABS: TESTOSTERONE 293 NG/DL (241-827)
== END ==
LOC: M LAB 08:29
PROVIDERS: ATTEND Family Medicine
DX: D64.9 Anemia, unspecified (principal); R53.83 Other fatigue; E03.9 Hypothyroidism, unspecified

== ENCOUNTER → 2020-03-09 | Outpatient (CLI) | payer BC, OTHER, MEDICARE | LOC: M LABSMTC 13:20 | PROVIDERS: ATTEND Anesthesiology | DX: Z01.812 Encounter for preprocedural laboratory examination (principal); Z20.828 Contact with and (suspected) exposure to other viral communicable diseases ==

== ENCOUNTER 2020-03-14 10:52 | Day surgery (SDC) | payer BC, OTHER, MEDICARE ==
[~2020-03-14] VITALS: Ht 172.7 cm; Wt 93.0 kg
[~2020-03-14 10:52] MED LIST changes: +NS 1,000 ML IV ONE
[2020-03-14] MEDS ORDERED: propofoL 200 MG/20 ML VIAL As Ordered ONE ×2 (11:41→13:10)
[2020-03-14] MEDS ORDERED: LIDOCAINE 2% 100MG/5ML SDV (FOR ANES.) As Ordered ONE (11:41)
--- NOTE | 2020-03-14 13:14 | ROOR ---
Patient Name: Reuben Mobley Procedure Date: 03/14/2020 12:48 PM Date of : 1950 Age: 69 Room: [facility] Gender: Male Note Status: Finalized Procedure: Total Colonoscopy to Cecum + Biopsy Polypectomy Indications: Follow-up of diverticulitis Providers: Nicholas Llamas MD Referring MD: VALENTINA GILL MD Requesting Provider: Medicines: Monitored Anesthesia Care Complications: No immediate complications. Procedure: Pre-Anesthesia Assessment: - The heart rate, respiratory rate, oxygen saturations, blood pressure, adequacy of pulmonary ventilation, and response to care were monitored throughout the procedure. The Colonoscope was introduced through the anus and advanced to the cecum, identified by appendiceal orifice and ileocecal valve. The colonoscopy was performed without difficulty. The patient tolerated the procedure well. The quality of the bowel preparation was good. Findings: The perianal and digital rectal examinations were normal. Non-bleeding internal hemorrhoids were found during retroflexion. The hemorrhoids were small and Grade I (internal hemorrhoids that do not prolapse). Multiple small and large-mouthed diverticula were found in the entire colon. A small polyp was found in the transverse colon. The polyp was sessile. The polyp was removed with a cold biopsy forceps. Resection and retrieval were complete. The exam was otherwise without abnormality on direct and retroflexion views. Impression: - Non-bleeding internal hemorrhoids. - Diverticulosis in the entire examined colon. - One small polyp in the transverse colon, removed with a cold biopsy forceps. Resected and retrieved. - The examination was otherwise normal on direct and retroflexion views. - The exam was otherwise normal to the cecum. Recommendation: - Patient has a contact number available for emergencies. The signs and symptoms of potential delayed complications were discussed with the patient. Return to normal activities tomorrow. Written discharge instructions were provided to the patient. - High fiber diet. - Discharge patient to home. - Continue present medications. - Await pathology results. - Telephone GI clinic for pathology results in 1 week. - Repeat colonoscopy in 10 years for screening purposes. - Return to referring physician. - The findings and recommendations were discussed with the patient. Procedure Code(s): --- Professional --- 27002, Colonoscopy, flexible; with biopsy, single or multiple Diagnosis Code(s): --- Professional --- K64.0, First degree hemorrhoids K63.5, Polyp of colon K57.32, Diverticulitis of large intestine without perforation or abscess without bleeding K57.30, Diverticulosis of large intestine without perforation or abscess without bleeding CPT copyright 2019 [employer]. All rights reserved. The codes documented in this report are preliminary and upon certified procedural coder review may be revised to meet current compliance requirements. Nicholas Llamas MD Nicholas Llamas MD 03/14/2020 1:14:35 PM Electronically signed by Nicholas Llamas MD Number of Addenda: 0 Note Initiated On: 03/14/2020 12:48 PM Estimated Blood Loss: Estimated blood loss: none.
[2020-03-14 13:38] VITALS: BP 125/80
== END 2020-03-14 13:41 | disposition home or self-care (01) ==
LOC: M OPP 10:52
PROVIDERS: ATTEND Internal Medicine Gastroenterology
DX: D12.3 Benign neoplasm of transverse colon (principal); K57.30 Diverticulosis of large intestine without perforation or abscess without bleeding; K64.0 First degree hemorrhoids; K57.32 Diverticulitis of large intestine without perforation or abscess without bleeding; E11.9 Type 2 diabetes mellitus without complications; Z79.82 Long term (current) use of aspirin; Z79.84 Long term (current) use of oral hypoglycemic drugs; Z79.899 Other long term (current) drug therapy; Z88.1 Allergy status to other antibiotic agents

== ENCOUNTER → 2020-05-10 | Outpatient (REF) | payer OTHER, MEDICARE ==
[~2020-05-10] MED LIST changes: -NS 1,000 ML IV ONE
== END ==
LOC: M LAB REF 15:44
PROVIDERS: ATTEND Physician Assistant
DX: R10.30 Lower abdominal pain, unspecified (principal)

== ENCOUNTER → 2020-09-10 | Outpatient (CLI) | payer MEDICARE, OTHER, BC ==
[2020-09-10 11:41] LABS: CHOLESTEROL RISK RATIO 3.65 (<5)
[2020-09-10 12:06] LABS: HEMOGLOBIN A1c 5.6 %
== END ==
LOC: M LAB 10:21
PROVIDERS: ATTEND Family Medicine
DX: E78.5 Hyperlipidemia, unspecified (principal); R73.03 Prediabetes

== ENCOUNTER → 2021-01-03 | Outpatient (CLI) | payer BC, OTHER, MEDICARE ==
[2021-01-03 10:29] LABS: HEMATOCRIT 44.5 % (42.0-52.0); HEMOGLOBIN 15.4 g/dl (13.5-17.5); MEAN CORPUSCULAR HEMOGLOBIN 28.8 pg (27.0-33.0); MEAN CORPUSCULAR HGB CONC 34.6 g/dl (32.0-36.5); MEAN CORPUSCULAR VOLUME 83.3 fl (80.0-96.0); PLATELET COUNT, AUTOMATED 223 10^3/uL (150-450); RED BLOOD COUNT 5.34 10^6/uL (4.30-6.10); WHITE BLOOD COUNT 4.2 10^3/uL (4.0-10.0)
--- NOTE | 2021-01-03 10:38 | REP ---
INDICATION: HTN,FATIGUE LAB AND EKG THEN XRAY. COMPARISON: Comparison chest x-ray September 06, 2018. TECHNIQUE: Two views.. FINDINGS: The lungs are well inflated and free of infiltrate. The pleural angles are sharp. The heart size is normal. Pulmonary vasculature is not increased. No significant bony abnormality is seen. There are degenerative disc changes in the thoracic spine. IMPRESSION: No active cardiopulmonary disease. <Electronically signed by Lam Mann > 01/03/21 [id number]
[2021-01-03 10:59] LABS: HEMOGLOBIN A1c 5.4 %
[2021-01-03 11:10] LABS: ALBUMIN 3.9 GM/DL (3.2-5.2); ALT/SGPT 37 U/L (12-78); BILIRUBIN,TOTAL 0.8 MG/DL (0.2-1.0); BLOOD UREA NITROGEN 17 MG/DL (7-18); CALCIUM LEVEL 9.2 MG/DL (8.8-10.2); CARBON DIOXIDE LEVEL 29 MEQ/L (21-32); CHLORIDE LEVEL 99 MEQ/L (98-107); CHOLESTEROL LEVEL 237 MG/DL (<200); CHOLESTEROL RISK RATIO 4.157 (<5); CREATININE FOR GFR 1.13 MG/DL (0.70-1.30); GLOMERULAR FILTRATION RATE > 60.0 (>49); GLUCOSE, FASTING 99 MG/DL (70-100); HDL CHOLESTEROL 57 MG/DL (>40); LDL CHOLESTEROL 165 MG/DL (<100); NON-HDL-C 180 MG/DL; POTASSIUM SERUM 3.9 MEQ/L (3.5-5.1); PROSTATIC SPECIFIC AG MONITOR 2.05 NG/ML (< 4.00); SODIUM LEVEL 134 MEQ/L (136-145); TESTOSTERONE 340 NG/DL (241-827); THYROID STIMULATING HORMONE 0.903 uIU/ML (0.358-3.740); TOTAL 25(OH) VITAMIN D 70.1 NG/ML (30.0-100.0); TOTAL PROTEIN 6.9 GM/DL (6.4-8.2); TRIGLYCERIDES LEVEL 76 MG/DL (<150)
--- NOTE | 2021-01-05 10:48 | ECGEPIP ---
Test Date: 2021-01-03 Pat Name: KAITLYN CHAKRABORTY Department: Room: - Gender: Male Story Analyst: danny : 1950 Requested By: Jalen Flores Order Number: [id number] Reading MD: Wilber Mooney Measurements Intervals [place] Rate: 69 P: 60 [place]: 144 QRS: -4 QRSD: 112 T: 14 QT: 412 QTc: 441 Interpretive Statements Normal sinus rhythm Incomplete RBBB. No significant change compared with 02/07/2020. Electronically Signed on 01-05-2021 10:48:18 EDT by Wilber Mooney
== END ==
LOC: M LAB 09:35
PROVIDERS: ATTEND Family Medicine
DX: I10 Essential (primary) hypertension (principal); R53.83 Other fatigue; M51.34 Other intervertebral disc degeneration, thoracic region; I45.19 Other right bundle-branch block

== ENCOUNTER 2021-05-22 08:43 | Emergency (ER) | payer BC, OTHER, MEDICARE ==
[~2021-05-22] VITALS: Ht 172.7 cm; Wt 99.4 kg
[2021-05-22] MEDS ORDERED: NS 1,000 ML IV ONE (09:50)
[2021-05-22 10:26] LABS: BASO % 0.4 % (0.0-1.0); EOS # 0.1 10^3/uL (0.0-0.5); EOS % 0.8 % (0.0-3.0); HEMATOCRIT 47.1 % (42.0-52.0); HEMOGLOBIN 15.5 g/dl (13.5-17.5); LYMPH # 1.2 10^3/uL (1.5-5.0); LYMPH % 12.5 % (24.0-44.0); MEAN CORPUSCULAR HEMOGLOBIN 28.2 pg (27.0-33.0); MEAN CORPUSCULAR HGB CONC 32.9 g/dl (32.0-36.5); MEAN CORPUSCULAR VOLUME 85.8 fl (80.0-96.0); MONO # 0.9 10^3/uL (0.0-0.8); MONO % 8.7 % (2.0-8.0); NEUTROPHILS # 7.7 10^3/uL (1.5-8.5); NEUTROPHILS % 77.2 % (36.0-66.0); PLATELET COUNT, AUTOMATED 250 10^3/uL (150-450); RED BLOOD COUNT 5.49 10^6/uL (4.30-6.10); WHITE BLOOD COUNT 9.9 10^3/uL (4.0-10.0)
[2021-05-22 10:43] LABS: ALBUMIN 3.9 GM/DL (3.2-5.2); ALT/SGPT 37 U/L (12-78); BILIRUBIN,DIRECT 0.2 MG/DL (0.0-0.2); BILIRUBIN,TOTAL 0.8 MG/DL (0.2-1.0); BLOOD UREA NITROGEN 15 MG/DL (7-18); CALCIUM LEVEL 9.9 MG/DL (8.8-10.2); CARBON DIOXIDE LEVEL 30 MEQ/L (21-32); CHLORIDE LEVEL 99 MEQ/L (98-107); CREATININE FOR GFR 1.07 MG/DL (0.70-1.30); GLOMERULAR FILTRATION RATE > 60.0 (>49); GLUCOSE, FASTING 114 MG/DL (70-100); LIPASE 95 U/L (73-393); POTASSIUM SERUM 4.3 MEQ/L (3.5-5.1); SODIUM LEVEL 136 MEQ/L (136-145); TOTAL PROTEIN 7.4 GM/DL (6.4-8.2)
[2021-05-22] MEDS ORDERED: ISOVUE-370 76% 100ML VIAL As Ordered ONE (10:46)
[2021-05-22] MEDS ORDERED: AMOX875T2 PO (12:45)
[2021-05-22] MEDS ORDERED: AUGMENTIN 875 MG TAB PO ONE (12:45)
[2021-05-22 12:57] VITALS: BP 145/75
== END 2021-05-22 12:57 | disposition home or self-care (01) ==
LOC: M ED 08:43
DX: K57.30 Diverticulosis of large intestine without perforation or abscess without bleeding (principal); K57.32 Diverticulitis of large intestine without perforation or abscess without bleeding; I10 Essential (primary) hypertension; G47.33 Obstructive sleep apnea (adult) (pediatric); F17.200 Nicotine dependence, unspecified, uncomplicated; Z79.82 Long term (current) use of aspirin; Z79.890 Hormone replacement therapy; Z79.899 Other long term (current) drug therapy; Z88.2 Allergy status to sulfonamides
CPT/HCPCS: 74177; 80048; 80076; 81001; 83690; 85025; 99284; Q9967

== ENCOUNTER → 2021-07-17 | Outpatient (CLI) | payer BC, OTHER, MEDICARE ==
[~2021-07-17] MED LIST changes: +AMOX875T2 PO; -D31000TA2 PO; +VITA100093 PO
[2021-07-17 09:18] LABS: HEMATOCRIT 43.2 % (42.0-52.0); HEMOGLOBIN 14.6 g/dl (13.5-17.5); MEAN CORPUSCULAR HEMOGLOBIN 28.5 pg (27.0-33.0); MEAN CORPUSCULAR HGB CONC 33.8 g/dl (32.0-36.5); MEAN CORPUSCULAR VOLUME 84.4 fl (80.0-96.0); PLATELET COUNT, AUTOMATED 273 10^3/uL (150-450); RED BLOOD COUNT 5.12 10^6/uL (4.30-6.10); WHITE BLOOD COUNT 7.4 10^3/uL (4.0-10.0)
[2021-07-17 09:54] LABS: ALT/SGPT 37 U/L (12-78); BILIRUBIN,TOTAL 0.6 MG/DL (0.2-1.0); BLOOD UREA NITROGEN 18 MG/DL (7-18); CALCIUM LEVEL 10.1 MG/DL (8.8-10.2); CARBON DIOXIDE LEVEL 28 MEQ/L (21-32); CHLORIDE LEVEL 100 MEQ/L (98-107); CHOLESTEROL LEVEL 177 MG/DL (<200); CREATININE FOR GFR 1.17 MG/DL (0.70-1.30); GLOMERULAR FILTRATION RATE > 60.0 (>49); GLUCOSE, FASTING 113 MG/DL (70-100); HDL CHOLESTEROL 57 MG/DL (>40); NON-HDL-C 120 MG/DL; POTASSIUM SERUM 4.3 MEQ/L (3.5-5.1); SODIUM LEVEL 134 MEQ/L (136-145); TRIGLYCERIDES LEVEL 56 MG/DL (<150)
[2021-07-17 09:55] LABS: ALBUMIN 3.7 GM/DL (3.2-5.2); CHOLESTEROL RISK RATIO 3.105 (<5); LDL CHOLESTEROL 109 MG/DL (<100); PROSTATIC SPECIFIC AG MONITOR 2.36 NG/ML (< 4.00); TESTOSTERONE 203 NG/DL (241-827); TOTAL PROTEIN 7.1 GM/DL (6.4-8.2)
[2021-07-17 10:35] LABS: HEMOGLOBIN A1c 5.7 %
== END ==
LOC: M LAB 07:12
PROVIDERS: ATTEND Family Medicine
DX: I10 Essential (primary) hypertension (principal); R53.83 Other fatigue; E03.9 Hypothyroidism, unspecified

== ENCOUNTER 2021-08-12 09:22 | Observation (INO) | payer BC, OTHER, MEDICARE ==
[~2021-08-12] VITALS: Ht 172.7 cm; Wt 210.0 kg
[2021-08-12] MEDS: ARIPiprazole 2 MG TAB PO SCH (09:00)
[2021-08-12] MEDS: VITAMIN D 1,000 INTERNATIONAL UNITS TABLET PO SCH (09:00)
[2021-08-12] MEDS: ASPIRIN 325 MG TAB PO SCH (09:00)
[2021-08-12] MEDS: metFORMIN (GLUCOPHAGE) 500MG TAB PO SCH (09:00)
[2021-08-12] MEDS: OMEGA-3 1000MG CAPSULE PO SCH (09:00)
[2021-08-12] MEDS: DYAZIDE 37.5/25 CAP (TRIAM/HCTZ) PO SCH (09:00)
[2021-08-12] MEDS: MULTIVITAMINS/MINERALS THERAP 1 TAB PO SCH (09:00)
[~2021-08-12 09:22] MED LIST changes: +ATORVASTATIN 20 MG TAB PO SCH
[2021-08-12 09:53] LABS: EOS # 0.1 10^3/uL (0.0-0.5); HEMATOCRIT 42.5 % (42.0-52.0); HEMOGLOBIN 14.6 g/dl (13.5-17.5); LYMPH # 1.3 10^3/uL (1.5-5.0); LYMPH % 30.7 % (24.0-44.0); MEAN CORPUSCULAR HEMOGLOBIN 28.7 pg (27.0-33.0); MEAN CORPUSCULAR HGB CONC 34.4 g/dl (32.0-36.5); MEAN CORPUSCULAR VOLUME 83.5 fl (80.0-96.0); MONO # 0.4 10^3/uL (0.0-0.8); NEUTROPHILS # 2.3 10^3/uL (1.5-8.5); NEUTROPHILS % 56.1 % (36.0-66.0); PLATELET COUNT, AUTOMATED 208 10^3/uL (150-450); RED BLOOD COUNT 5.09 10^6/uL (4.30-6.10); WHITE BLOOD COUNT 4.1 10^3/uL (4.0-10.0)
[2021-08-12] MEDS ORDERED: HOME MED LIST COMPLETE! XX SCH (10:10)
[2021-08-12 10:13] LABS: BLOOD UREA NITROGEN 14 MG/DL (7-18); CALCIUM LEVEL 9.5 MG/DL (8.8-10.2); CARBON DIOXIDE LEVEL 29 MEQ/L (21-32); CHLORIDE LEVEL 100 MEQ/L (98-107); CREATININE FOR GFR 1.18 MG/DL (0.70-1.30); GLOMERULAR FILTRATION RATE > 60.0 (>49); GLUCOSE, FASTING 124 MG/DL (70-100); INR 0.91; PARTIAL THROMBOPLASTIN TIME 28.7 SECONDS (25.9-37.0); POTASSIUM SERUM 4.1 MEQ/L (3.5-5.1); PROTHROMBIN TIME 12.7 SECONDS (12.7-14.5); SODIUM LEVEL 133 MEQ/L (136-145)
[2021-08-12] MEDS ORDERED: CALCIUM CARBONATE 500 MG CHEW U/D PO ONE (12:50)
[2021-08-12] MEDS ORDERED: ISOVUE-370 76% 100ML VIAL As Ordered ONE (15:29)
[2021-08-12 15:44] LABS: RSV AMPLIFICATION NEGATIVE (NEGATIVE)
[2021-08-12 15:56] LABS: CHOLESTEROL LEVEL 195 MG/DL (<200); CHOLESTEROL RISK RATIO 3.823 (<5); HDL CHOLESTEROL 51 MG/DL (>40); LDL CHOLESTEROL 125 MG/DL (<100); NON-HDL-C 144 MG/DL; TRIGLYCERIDES LEVEL 94 MG/DL (<150)
[2021-08-12 16:41] LABS: HEMOGLOBIN A1c 5.8 %
[2021-08-12 17:30] VITALS: BP 144/83
[2021-08-12 18:01] VITALS: O2SAT 95
[2021-08-12 19:50] VITALS: BP 139/78
[2021-08-12] MEDS ORDERED: ATORVASTATIN 20 MG TAB PO ONE ×2 (20:00→20:20)
[2021-08-12] MEDS ORDERED: carisoprodoL 350 MG TAB PO PRN (20:00)
[2021-08-12] MEDS: COSOPT OCUMETER PLUS 10ML (DORZOLAMIDE/TIMOLOL) OU SCH (20:33)
[2021-08-12 21:00] VITALS: O2SAT 95
[2021-08-12 22:00] VITALS: BP 125/73
[2021-08-13 01:56] VITALS: BP 123/73
[2021-08-13 05:54] LABS: BASO % 0.9 % (0.0-1.0); EOS # 0.1 10^3/uL (0.0-0.5); EOS % 2.6 % (0.0-3.0); HEMATOCRIT 42.9 % (42.0-52.0); HEMOGLOBIN 14.7 g/dl (13.5-17.5); LYMPH # 1.3 10^3/uL (1.5-5.0); LYMPH % 28.6 % (24.0-44.0); MEAN CORPUSCULAR HEMOGLOBIN 28.7 pg (27.0-33.0); MEAN CORPUSCULAR HGB CONC 34.3 g/dl (32.0-36.5); MEAN CORPUSCULAR VOLUME 83.8 fl (80.0-96.0); MONO # 0.6 10^3/uL (0.0-0.8); MONO % 12.6 % (2.0-8.0); NEUTROPHILS # 2.6 10^3/uL (1.5-8.5); NEUTROPHILS % 54.9 % (36.0-66.0); PLATELET COUNT, AUTOMATED 198 10^3/uL (150-450); RED BLOOD COUNT 5.12 10^6/uL (4.30-6.10); WHITE BLOOD COUNT 4.7 10^3/uL (4.0-10.0)
[2021-08-13 06:10] LABS: BLOOD UREA NITROGEN 17 MG/DL (7-18); CALCIUM LEVEL 9.6 MG/DL (8.8-10.2); CARBON DIOXIDE LEVEL 29 MEQ/L (21-32); CHLORIDE LEVEL 103 MEQ/L (98-107); CREATININE FOR GFR 1.17 MG/DL (0.70-1.30); GLOMERULAR FILTRATION RATE > 60.0 (>49); GLUCOSE, FASTING 112 MG/DL (70-100); POTASSIUM SERUM 4.1 MEQ/L (3.5-5.1); SODIUM LEVEL 136 MEQ/L (136-145)
[2021-08-13 06:13] VITALS: BP 126/73
[2021-08-13] MEDS ORDERED: FLUTICASONE PROP 0.05% NASAL SPRAY 16 GM (FLONASE) SCH (09:00)
[2021-08-13] MEDS ORDERED: ATORVASTATIN 20 MG TAB PO SCH ×2 (09:00→21:00)
[2021-08-13] MEDS ORDERED: LIDOCAINE 5% (LIDODERM) PATCH TD SCH (09:00)
[2021-08-13] MEDS: metFORMIN (GLUCOPHAGE) 500MG TAB PO SCH (09:17)
[2021-08-13] MEDS: OMEGA-3 1000MG CAPSULE PO SCH (09:17)
[2021-08-13] MEDS: ARIPiprazole 2 MG TAB PO SCH (09:17)
[2021-08-13] MEDS: MULTIVITAMINS/MINERALS THERAP 1 TAB PO SCH (09:18)
[2021-08-13] MEDS: ASPIRIN 325 MG TAB PO SCH (09:18)
[2021-08-13] MEDS: DYAZIDE 37.5/25 CAP (TRIAM/HCTZ) PO SCH (09:18)
[2021-08-13] MEDS: VITAMIN D 1,000 INTERNATIONAL UNITS TABLET PO SCH (09:18)
[2021-08-13] MEDS: COSOPT OCUMETER PLUS 10ML (DORZOLAMIDE/TIMOLOL) OU SCH (09:19)
[2021-08-13 10:00] VITALS: BP 138/76
[2021-08-13] MEDS ORDERED: ASPI-1 PO (13:50)
[2021-08-13] MEDS ORDERED: ATOR40TA75 PO (13:50)
[2021-08-13 14:00] VITALS: BP 139/77
[2021-08-13] MEDS ORDERED: **NOTE PATIENT COMMENT** MISC XX SCH (21:00)
[2021-08-15 10:13] LABS: DRVV SCREEN 35.8 SEC
== END 2021-08-13 15:02 | disposition home or self-care (01) ==
LOC: M ED 09:22 → M ED INP 09:23 → ENRESERV 16:50 → M MSPAV 17:22
PROVIDERS: ADMIT Family Medicine; ATTEND Family Medicine
DX: G45.9 Transient cerebral ischemic attack, unspecified (principal); M25.551 Pain in right hip; Z91.81 History of falling; F32.9 Major depressive disorder, single episode, unspecified; I10 Essential (primary) hypertension; R73.03 Prediabetes; K57.92 Diverticulitis of intestine, part unspecified, without perforation or abscess without bleeding; M10.9 Gout, unspecified; Z79.82 Long term (current) use of aspirin; Z79.84 Long term (current) use of oral hypoglycemic drugs; Z79.899 Other long term (current) drug therapy; Z88.2 Allergy status to sulfonamides
CPT/HCPCS: 36415; 70450; 70496; 70498; 70544; 70551; 71045; 73502; 73700; 80048; 80061; 81240; 83036; 83090; 83735; 84484; 85025; 85300; 85301; 85302; 85305; 85306; 85610; 85730; 86037; 86038; 86147; 86235; 87631; 93005; 93041; 93306; 94760; 97161; 99285; Q9967

== ENCOUNTER → 2021-12-24 | Outpatient (CLI) | payer BC, OTHER, MEDICARE ==
[~2021-12-24] MED LIST changes: +ASPI-1 PO; +ATOR40TA75 PO; -ATORVASTATIN 20 MG TAB PO SCH; -TRIA37.53; -TRIA37.53 PO; +TRIA37.577; +TRIA37.577 PO
[2021-12-24 10:31] LABS: HEMATOCRIT 45.7 % (42.0-52.0); HEMOGLOBIN 15.3 g/dl (13.5-17.5); MEAN CORPUSCULAR HEMOGLOBIN 28.5 pg (27.0-33.0); MEAN CORPUSCULAR HGB CONC 33.5 g/dl (32.0-36.5); MEAN CORPUSCULAR VOLUME 85.3 fl (80.0-96.0); PLATELET COUNT, AUTOMATED 207 10^3/uL (150-450); RED BLOOD COUNT 5.36 10^6/uL (4.30-6.10); WHITE BLOOD COUNT 3.8 10^3/uL (4.0-10.0)
[2021-12-24 10:54] LABS: HEMOGLOBIN A1c 5.8 %
[2021-12-24 11:38] LABS: ALBUMIN 3.6 GM/DL (3.2-5.2); ALT/SGPT 50 U/L (12-78); BILIRUBIN,TOTAL 0.5 MG/DL (0.2-1.0); BLOOD UREA NITROGEN 16 MG/DL (7-18); CALCIUM LEVEL 9.8 MG/DL (8.8-10.2); CARBON DIOXIDE LEVEL 29 MEQ/L (21-32); CHLORIDE LEVEL 97 MEQ/L (98-107); CHOLESTEROL LEVEL 165 MG/DL (<200); CHOLESTEROL RISK RATIO 3.235 (<5); CREATININE FOR GFR 1.19 MG/DL (0.70-1.30); GLOMERULAR FILTRATION RATE > 60.0 (>42); GLUCOSE, FASTING 107 MG/DL (70-100); HDL CHOLESTEROL 51 MG/DL (>40); LDL CHOLESTEROL 99 MG/DL (<100); NON-HDL-C 114 MG/DL; POTASSIUM SERUM 4.6 MEQ/L (3.5-5.1); PROSTATIC SPECIFIC AG MONITOR 1.91 NG/ML (< 4.00); SODIUM LEVEL 132 MEQ/L (136-145); TOTAL PROTEIN 6.6 GM/DL (6.4-8.2); TRIGLYCERIDES LEVEL 75 MG/DL (<150)
[2021-12-24 12:21] LABS: TESTOSTERONE 127 NG/DL (241-827)
== END ==
LOC: M LAB 08:55
PROVIDERS: ATTEND Family Medicine
DX: I10 Essential (primary) hypertension (principal); R53.83 Other fatigue; E03.9 Hypothyroidism, unspecified

== ENCOUNTER → 2022-03-03 | Outpatient (CLI) | payer BC, OTHER, MEDICARE ==
[~2022-03-03] MED LIST changes: +IBUP80TA PO
== END ==
LOC: M RAD 12:22
PROVIDERS: ATTEND Family Medicine
DX: M54.30 Sciatica, unspecified side (principal); M47.817 Spondylosis without myelopathy or radiculopathy, lumbosacral region; M25.751 Osteophyte, right hip; M25.752 Osteophyte, left hip

== ENCOUNTER 2022-03-24 18:34 | Emergency (ER) | payer MEDICARE, BC, OTHER ==
[~2022-03-24] VITALS: Ht 172.7 cm; Wt 102.7 kg
[~2022-03-24 18:34] MED LIST changes: -IBUP80TA PO
[2022-03-25 03:00] VITALS: BP 130/70
[2022-03-25] MEDS ORDERED: IBUP80TA PO (03:48)
== END 2022-03-25 04:25 | disposition home or self-care (01) ==
LOC: M ED 18:34
DX: M25.461 Effusion, right knee (principal); I25.10 Atherosclerotic heart disease of native coronary artery without angina pectoris; I10 Essential (primary) hypertension; E11.9 Type 2 diabetes mellitus without complications; Z86.73 Personal history of transient ischemic attack (TIA), and cerebral infarction without residual deficits; Z79.84 Long term (current) use of oral hypoglycemic drugs; Z79.899 Other long term (current) drug therapy; Z88.2 Allergy status to sulfonamides

== ENCOUNTER → 2022-04-29 | Outpatient (CLI) | payer BC, OTHER, MEDICARE ==
[~2022-04-29] MED LIST changes: -COSO1SOL3 OU; +DORZ10DR10 OU; +IBUP80TA PO
[2022-04-29 07:49] LABS: HEMATOCRIT 48.5 % (42.0-52.0); MEAN CORPUSCULAR HEMOGLOBIN 28.4 pg (27.0-33.0); MEAN CORPUSCULAR VOLUME 86.1 fl (80.0-96.0); PLATELET COUNT, AUTOMATED 183 10^3/uL (150-450); RED BLOOD COUNT 5.63 10^6/uL (4.30-6.10); WHITE BLOOD COUNT 5.6 10^3/uL (4.0-10.0)
[2022-04-29 08:21] LABS: ALBUMIN 3.7 G/DL (3.2-5.2); BILIRUBIN,TOTAL 0.6 MG/DL (0.3-1.2); CALCIUM LEVEL 9.3 MG/DL (8.3-10.6); CHOLESTEROL RISK RATIO 3.37 (<5); CREATININE FOR GFR 1.34 MG/DL (0.70-1.30); GLOMERULAR FILTRATION RATE 56.1 (>42); LDL CHOLESTEROL 87.4 MG/DL (<100); POTASSIUM SERUM 4.2 MMOL/L (3.5-5.1); PROSTATIC SPECIFIC AG MONITOR 2.09 NG/ML (< 4.00); THYROID STIMULATING HORMONE 2.722 uIU/ML (0.55-4.78); TOTAL PROTEIN 6.5 G/DL (5.7-8.2)
[2022-04-29 09:45] LABS: HEMOGLOBIN A1c 5.6 % (4.0-6.0)
== END ==
LOC: M LAB 07:17
PROVIDERS: ATTEND Family Medicine
DX: I10 Essential (primary) hypertension (principal); R53.83 Other fatigue; E03.9 Hypothyroidism, unspecified

== ENCOUNTER → 2022-11-13 | Outpatient (CLI) | payer MEDICARE, OTHER ==
[2022-11-13 07:39] LABS: HEMATOCRIT 49.1 % (42.0-52.0); MEAN CORPUSCULAR HEMOGLOBIN 28.8 pg (27.0-33.0); MEAN CORPUSCULAR HGB CONC 34.6 g/dl (32.0-36.5); MEAN CORPUSCULAR VOLUME 83.2 fl (80.0-96.0); PLATELET COUNT, AUTOMATED 203 10^3/uL (150-450); WHITE BLOOD COUNT 4.9 10^3/uL (4.0-10.0)
[2022-11-13 08:10] LABS: ALBUMIN 3.9 G/DL (3.2-5.2); BILIRUBIN,TOTAL 0.8 MG/DL (0.3-1.2); CALCIUM LEVEL 9.9 MG/DL (8.3-10.6); CHOLESTEROL RISK RATIO 3.26 (<5); CREATININE FOR GFR 1.32 MG/DL (0.70-1.30); GLOMERULAR FILTRATION RATE 56.9 (>42); HDL CHOLESTEROL 51.5 MG/DL (>40); LDL CHOLESTEROL 96.1 MG/DL (<100); NON-HDL-C 116.5 MG/DL; POTASSIUM SERUM 4.2 MMOL/L (3.5-5.1); PROSTATIC SPECIFIC AG MONITOR 1.93 NG/ML (< 4.00); THYROID STIMULATING HORMONE 1.693 uIU/ML (0.55-4.78); TOTAL 25(OH) VITAMIN D 61.9 NG/ML (20.0-100.0); TOTAL PROTEIN 6.5 G/DL (5.7-8.2)
[2022-11-13 08:14] LABS: HEMOGLOBIN A1c 6.1 % (4.0-6.0)
== END ==
LOC: M LAB 07:01
PROVIDERS: ATTEND Family Medicine
DX: I10 Essential (primary) hypertension (principal); R53.83 Other fatigue; E03.9 Hypothyroidism, unspecified

== ENCOUNTER → 2023-01-26 | Outpatient (CLI) | payer MEDICARE, OTHER ==
[2023-01-26 08:31] LABS: HEMATOCRIT 44.1 % (42.0-52.0); HEMOGLOBIN 15.1 g/dl (13.5-17.5); MEAN CORPUSCULAR HEMOGLOBIN 29.7 pg (27.0-33.0); MEAN CORPUSCULAR HGB CONC 34.2 g/dl (32.0-36.5); MEAN CORPUSCULAR VOLUME 86.6 fl (80.0-96.0); PLATELET COUNT, AUTOMATED 214 10^3/uL (150-450); RED BLOOD COUNT 5.09 10^6/uL (4.30-6.10); WHITE BLOOD COUNT 4.8 10^3/uL (4.0-10.0)
[2023-01-27 05:23] LABS: PROSTATIC SPECIFIC AG MONITOR 2.26 NG/ML (< 4.00)
[2023-01-27 05:27] LABS: TESTOSTERONE 699 NG/DL (241-827)
[2023-01-27 05:29] LABS: ALBUMIN 3.8 G/DL (3.2-5.2); ALKALINE PHOSPHATASE 73 U/L (46-116); ALT/SGPT 40 U/L (7.0-40); AST/SGOT 23 U/L (<34); BILIRUBIN,TOTAL 0.8 MG/DL (0.3-1.2); BLOOD UREA NITROGEN 15 MG/DL (9-23); CALCIUM LEVEL 9.6 MG/DL (8.3-10.6); CARBON DIOXIDE LEVEL 31 MMOL/L (20-31); CHLORIDE LEVEL 98 MMOL/L (98-107); CHOLESTEROL LEVEL 159 MG/DL (<200); CHOLESTEROL RISK RATIO 3.66 (<5); CREATININE FOR GFR 1.12 MG/DL (0.70-1.30); GLOMERULAR FILTRATION RATE > 60.0 (>42); GLUCOSE, FASTING 118 MG/DL (74-106); HDL CHOLESTEROL 43.4 MG/DL (>40); LDL CHOLESTEROL 93.6 MG/DL (<100); NON-HDL-C 115.6 MG/DL; POTASSIUM SERUM 4.3 MMOL/L (3.5-5.1); SODIUM LEVEL 135 MMOL/L (136-145); TOTAL PROTEIN 6.3 G/DL (5.7-8.2); TRIGLYCERIDES LEVEL 110 MG/DL (<150)
== END ==
LOC: M LAB 07:07
PROVIDERS: ATTEND Family Medicine
DX: I10 Essential (primary) hypertension (principal); E03.9 Hypothyroidism, unspecified; R53.83 Other fatigue; R73.03 Prediabetes; N40.0 Benign prostatic hyperplasia without lower urinary tract symptoms

== ENCOUNTER → 2023-04-20 | Outpatient (CLI) | payer MEDICARE, OTHER ==
[2023-04-20 08:38] LABS: HEMATOCRIT 48.8 % (42.0-52.0); HEMOGLOBIN 16.4 g/dl (13.5-17.5); MEAN CORPUSCULAR HEMOGLOBIN 29.4 pg (27.0-33.0); MEAN CORPUSCULAR HGB CONC 33.6 g/dl (32.0-36.5); MEAN CORPUSCULAR VOLUME 87.6 fl (80.0-96.0); PLATELET COUNT, AUTOMATED 205 10^3/uL (150-450); RED BLOOD COUNT 5.57 10^6/uL (4.30-6.10); WHITE BLOOD COUNT 5.4 10^3/uL (4.0-10.0)
[2023-04-20 09:02] LABS: ALBUMIN 3.9 G/DL (3.2-5.2); ALKALINE PHOSPHATASE 82 U/L (46-116); ALT/SGPT 32 U/L (7.0-40); AST/SGOT 16 U/L (<34); BILIRUBIN,TOTAL 0.6 MG/DL (0.3-1.2); BLOOD UREA NITROGEN 14 MG/DL (9-23); CALCIUM LEVEL 9.5 MG/DL (8.3-10.6); CARBON DIOXIDE LEVEL 31 MMOL/L (20-31); CHLORIDE LEVEL 96 MMOL/L (98-107); CHOLESTEROL LEVEL 142 MG/DL (<200); CHOLESTEROL RISK RATIO 2.89 (<5); CREATININE FOR GFR 1.14 MG/DL (0.70-1.30); GLOMERULAR FILTRATION RATE > 60.0 (>42); GLUCOSE, FASTING 122 MG/DL (74-106); HDL CHOLESTEROL 49.1 MG/DL (>40); LDL CHOLESTEROL 75.3 MG/DL (<100); NON-HDL-C 92.9 MG/DL; POTASSIUM SERUM 4.6 MMOL/L (3.5-5.1); PROSTATIC SPECIFIC AG MONITOR 2.85 NG/ML (< 4.00); SODIUM LEVEL 131 MMOL/L (136-145); TOTAL PROTEIN 6.4 G/DL (5.7-8.2); TRIGLYCERIDES LEVEL 88 MG/DL (<150)
[2023-04-20 09:05] LABS: THYROID STIMULATING HORMONE 1.883 uIU/ML (0.55-4.78)
[2023-04-20 09:06] LABS: TESTOSTERONE 801 NG/DL (241-827)
[2023-04-20 09:13] LABS: HEMOGLOBIN A1c 5.5 % (4.0-6.0)
== END ==
LOC: M LAB 07:09
PROVIDERS: ATTEND Family Medicine
DX: I10 Essential (primary) hypertension (principal); R53.83 Other fatigue; E03.9 Hypothyroidism, unspecified; Z12.5 Encounter for screening for malignant neoplasm of prostate; Z79.899 Other long term (current) drug therapy

== ENCOUNTER → 2023-09-04 | Outpatient (CLI) | payer MEDICARE, OTHER ==
[~2023-09-04] MED LIST changes: -ASPI-161 PO; +ASPI-615 PO
[2023-09-04 09:20] LABS: HEMATOCRIT 45.2 % (42.0-52.0); HEMOGLOBIN 15.9 g/dl (13.5-17.5); MEAN CORPUSCULAR HEMOGLOBIN 29.4 pg (27.0-33.0); MEAN CORPUSCULAR HGB CONC 35.2 g/dl (32.0-36.5); MEAN CORPUSCULAR VOLUME 83.5 fl (80.0-96.0); PLATELET COUNT, AUTOMATED 215 10^3/uL (150-450); RED BLOOD COUNT 5.41 10^6/uL (4.30-6.10); WHITE BLOOD COUNT 4.7 10^3/uL (4.0-10.0)
[2023-09-04 09:48] LABS: ALKALINE PHOSPHATASE 65 U/L (46-116); ALT/SGPT 46 U/L (7.0-40); AST/SGOT 25 U/L (<34); BILIRUBIN,TOTAL 1.2 MG/DL (0.3-1.2); BLOOD UREA NITROGEN 17 MG/DL (9-23); CALCIUM LEVEL 9.8 MG/DL (8.3-10.6); CARBON DIOXIDE LEVEL 28 MMOL/L (20-31); CHLORIDE LEVEL 94 MMOL/L (98-107); CHOLESTEROL LEVEL 176 MG/DL (<200); CHOLESTEROL RISK RATIO 3.62 (<5); CREATININE FOR GFR 1.17 MG/DL (0.70-1.30); GLOMERULAR FILTRATION RATE > 60.0 (>42); GLUCOSE, FASTING 112 MG/DL (74-106); HDL CHOLESTEROL 48.5 MG/DL (>40); LDL CHOLESTEROL 109.5 MG/DL (<100); NON-HDL-C 127.5 MG/DL; POTASSIUM SERUM 4.3 MMOL/L (3.5-5.1); PSA SCREENING 2.22 NG/ML (< 4.00); SODIUM LEVEL 128 MMOL/L (136-145); THYROID STIMULATING HORMONE 2.224 uIU/ML (0.55-4.78); TOTAL PROTEIN 6.2 G/DL (5.7-8.2); TRIGLYCERIDES LEVEL 90 MG/DL (<150)
[2023-09-04 09:50] LABS: TESTOSTERONE 714 NG/DL (241-827); TOTAL 25(OH) VITAMIN D 108.2 NG/ML (20.0-100.0)
[2023-09-04 10:00] LABS: HEMOGLOBIN A1c 5.5 % (4.0-6.0)
== END ==
LOC: M LAB 08:57
PROVIDERS: ATTEND Family Medicine
DX: I10 Essential (primary) hypertension (principal); R53.83 Other fatigue; E03.9 Hypothyroidism, unspecified; Z12.5 Encounter for screening for malignant neoplasm of prostate; Z79.899 Other long term (current) drug therapy
CPT/HCPCS: 36415; 80053; 80061; 82306; 83036; 84403; 84443; 85027; G0103

== ENCOUNTER → 2024-01-21 | Outpatient (CLI) | payer MEDICARE, OTHER ==
[2024-01-21 07:48] LABS: HEMATOCRIT 47.2 % (42.0-52.0); HEMOGLOBIN 16.1 g/dl (13.5-17.5); MEAN CORPUSCULAR HEMOGLOBIN 30.2 pg (27.0-33.0); MEAN CORPUSCULAR HGB CONC 34.1 g/dl (32.0-36.5); MEAN CORPUSCULAR VOLUME 88.6 fl (80.0-96.0); PLATELET COUNT, AUTOMATED 217 10^3/uL (150-450); RED BLOOD COUNT 5.33 10^6/uL (4.30-6.10)
[2024-01-21 08:20] LABS: PROSTATIC SPECIFIC AG MONITOR 1.83 NG/ML (< 4.00)
[2024-01-21 08:23] LABS: ALKALINE PHOSPHATASE 72 U/L (46-116); ALT/SGPT 36 U/L (7.0-40); AST/SGOT 23 U/L (<34); BILIRUBIN,TOTAL 0.8 MG/DL (0.3-1.2); BLOOD UREA NITROGEN 18 MG/DL (9-23); CALCIUM LEVEL 10.1 MG/DL (8.3-10.6); CARBON DIOXIDE LEVEL 32 MMOL/L (20-31); CHLORIDE LEVEL 99 MMOL/L (98-107); CHOLESTEROL LEVEL 164 MG/DL (<200); CHOLESTEROL RISK RATIO 3.41 (<5); CREATININE FOR GFR 1.17 MG/DL (0.70-1.30); GLOMERULAR FILTRATION RATE > 60.0 (>42); GLUCOSE, FASTING 113 MG/DL (74-106); POTASSIUM SERUM 4.5 MMOL/L (3.5-5.1); SODIUM LEVEL 132 MMOL/L (136-145); TOTAL PROTEIN 6.6 G/DL (5.7-8.2); TRIGLYCERIDES LEVEL 70 MG/DL (<150)
[2024-01-21 08:24] LABS: THYROID STIMULATING HORMONE 1.961 uIU/ML (0.55-4.78)
[2024-01-21 08:25] LABS: HEMOGLOBIN A1c 5.2 % (4.0-6.0); TESTOSTERONE 862 NG/DL (241-827)
== END ==
LOC: M LAB 07:06
PROVIDERS: ATTEND Family Medicine
DX: I10 Essential (primary) hypertension (principal); R53.83 Other fatigue; E03.9 Hypothyroidism, unspecified; Z79.899 Other long term (current) drug therapy

== ENCOUNTER → 2024-04-26 | Outpatient (CLI) | payer MEDICARE, OTHER ==
[2024-04-26 07:38] LABS: HEMOGLOBIN 16.3 g/dl (13.5-17.5); MEAN CORPUSCULAR HEMOGLOBIN 29.6 pg (27.0-33.0); MEAN CORPUSCULAR VOLUME 87.3 fl (80.0-96.0); PLATELET COUNT, AUTOMATED 194 10^3/uL (150-450); WHITE BLOOD COUNT 4.4 10^3/uL (4.0-10.0)
[2024-04-26 08:04] LABS: ALKALINE PHOSPHATASE 73 U/L (40-129); ALT/SGPT 33 U/L (7.0-40); AST/SGOT 21 U/L (<34); BILIRUBIN,TOTAL 0.7 MG/DL (0.3-1.2); BLOOD UREA NITROGEN 19 MG/DL (9-23); CALCIUM LEVEL 9.8 MG/DL (8.3-10.6); CARBON DIOXIDE LEVEL 32 MMOL/L (20-31); CHLORIDE LEVEL 100 MMOL/L (98-107); CHOLESTEROL LEVEL 179 MG/DL (<200); CHOLESTEROL RISK RATIO 3.31 (<5); CREATININE FOR GFR 1.16 MG/DL (0.70-1.30); GLOMERULAR FILTRATION RATE > 60.0 (>42); GLUCOSE, FASTING 121 MG/DL (74-106); LDL CHOLESTEROL 106.8 MG/DL (<100); POTASSIUM SERUM 4.7 MMOL/L (3.5-5.1); PROSTATIC SPECIFIC AG MONITOR 2.04 NG/ML (< 4.00); SODIUM LEVEL 138 MMOL/L (136-145); TOTAL PROTEIN 6.8 G/DL (5.7-8.2); TRIGLYCERIDES LEVEL 91 MG/DL (<150)
[2024-04-26 08:05] LABS: THYROID STIMULATING HORMONE 3.212 uIU/ML (0.55-4.78)
[2024-04-26 08:06] LABS: TESTOSTERONE 420 NG/DL (241-827)
[2024-04-26 08:11] LABS: HEMOGLOBIN A1c 5.3 % (4.0-6.0)
== END ==
LOC: M LAB 06:50
PROVIDERS: ATTEND Family Medicine
DX: I10 Essential (primary) hypertension (principal); R53.83 Other fatigue; E03.9 Hypothyroidism, unspecified; Z79.899 Other long term (current) drug therapy

== ENCOUNTER → 2024-10-12 | Outpatient (REF) | payer MEDICARE, OTHER ==
[2024-10-12 18:29] LABS: BASO # 0.0 10^3/uL (0.0-0.2); BASO % 0.8 % (0.0-1.0); EOS # 0.1 10^3/uL (0.0-0.5); EOS % 2.3 % (0.0-3.0); LYMPH # 1.3 10^3/uL (1.5-5.0); LYMPH % 28.1 % (24.0-44.0); MONO # 0.6 10^3/uL (0.0-0.8); MONO % 13.0 % (2.0-8.0); NEUTROPHILS # 2.7 10^3/uL (1.5-8.5); NEUTROPHILS % 55.6 % (36.0-66.0); PLATELET COUNT, AUTOMATED 214 10^3/uL (150-450)
[2024-10-12 18:31] LABS: CREATININE, URINE 83.0 MG/DL; MALB URINE SIEMENS 30.0 MG/L; MAU/CREAT RATIO 36.1 MCG/MG (0.0-30.0)
[2024-10-12 19:03] LABS: TESTOSTERONE 592.0 NG/DL (241-827)
[2024-10-12 19:04] LABS: ALT/SGPT 74.0 U/L (7.0-40); AST/SGOT 34.0 U/L (<34); CALCIUM LEVEL 10.2 MG/DL (8.3-10.6); CARBON DIOXIDE LEVEL 29.0 MMOL/L (20-31); CHLORIDE LEVEL 98.0 MMOL/L (98-107); CHOLESTEROL LEVEL 192.0 MG/DL (<200); CHOLESTEROL RISK RATIO 3.67 (<5); CREATININE FOR GFR 1.16 MG/DL (0.70-1.30); GLOMERULAR FILTRATION RATE 66.5 (>42); LDL CHOLESTEROL 118.7 MG/DL (<100); NON-HDL-C 139.7 MG/DL; POTASSIUM SERUM 4.5 MMOL/L (3.5-5.1); SODIUM LEVEL 137.0 MMOL/L (136-145); TRIGLYCERIDES LEVEL 105.0 MG/DL (<150)
== END ==
LOC: M SFHCLERA 07:29
PROVIDERS: ATTEND Internal Medicine
DX: I10 Essential (primary) hypertension (principal); E29.1 Testicular hypofunction; E11.59 Type 2 diabetes mellitus with other circulatory complications

== ENCOUNTER → 2025-01-13 | Outpatient (REF) | payer MEDICARE, OTHER ==
[2025-01-13 17:52] LABS: APPEARANCE, URINE CLEAR (CLEAR); BACTERIA, URINE AUTO NEGATIVE (NEGATIVE); BILIRUBIN, URINE AUTO NEGATIVE (NEGATIVE); BLOOD, URINE BLOOD NEGATIVE (NEGATIVE); GLUCOSE, URINE (UA) AUTO NEGATIVE (NEGATIVE); KETONE, URINE AUTO NEGATIVE (NEGATIVE); LEUKOCYTE ESTERASE, URINE AUTO NEGATIVE (NEGATIVE); NITRITE, URINE AUTO NEGATIVE (NEGATIVE); PROTEIN, URINE AUTO 1+ mg/dL (NEGATIVE); RBC, URINE AUTO 1 /HPF (0-3); SPECIFIC GRAVITY URINE AUTO 1.017 (1.002-1.035); SQUAMOUS EPITHELIAL CELL UR AU 0 /HPF (0-6); UROBILINOGEN, URINE AUTO 0.2 mg/dL (0.0-2.0); WBC, URINE AUTO 1 /HPF (0-3)
[2025-01-13 18:03] LABS: CREATININE, URINE 136.1 MG/DL
[2025-01-13 18:04] LABS: MALB URINE SIEMENS 125.0 MG/L; MAU/CREAT RATIO 91.8 MCG/MG (0.0-30.0)
[2025-01-13 18:23] LABS: BASO # 0.0 10^3/uL (0.0-0.2); BASO % 0.7 % (0.0-1.0); EOS # 0.1 10^3/uL (0.0-0.5); EOS % 2.7 % (0.0-3.0); LYMPH # 1.1 10^3/uL (1.5-5.0); LYMPH % 25.4 % (24.0-44.0); MONO # 0.5 10^3/uL (0.0-0.8); MONO % 11.2 % (2.0-8.0); NEUTROPHILS # 2.7 10^3/uL (1.5-8.5); NEUTROPHILS % 59.8 % (36.0-66.0); PLATELET COUNT, AUTOMATED 243 10^3/uL (150-450)
[2025-01-13 18:28] LABS: PROSTATIC SPECIFIC AG MONITOR 2.72 NG/ML (< 4.00)
[2025-01-13 18:29] LABS: ALT/SGPT 55.0 U/L (7.0-40); AST/SGOT 24.0 U/L (<34); CALCIUM LEVEL 9.7 MG/DL (8.3-10.6); CARBON DIOXIDE LEVEL 31.0 MMOL/L (20-31); CHLORIDE LEVEL 101.0 MMOL/L (98-107); CREATININE FOR GFR 1.2 MG/DL (0.70-1.30); GLOMERULAR FILTRATION RATE 63.9 (>42); POTASSIUM SERUM 4.7 MMOL/L (3.5-5.1); SODIUM LEVEL 139.0 MMOL/L (136-145)
[2025-01-13 18:34] LABS: TESTOSTERONE 595.0 NG/DL (241-827); VITAMIN B12 LEVEL 884.0 PG/ML (211-911)
== END ==
LOC: M SFHCLERA 07:46
PROVIDERS: ATTEND Internal Medicine
DX: I10 Essential (primary) hypertension (principal); E29.1 Testicular hypofunction; R41.89 Other symptoms and signs involving cognitive functions and awareness; Z79.899 Other long term (current) drug therapy

== ENCOUNTER → 2025-02-28 | Outpatient (REF) | payer MEDICARE, OTHER ==
[2025-02-28 18:17] LABS: CALCIUM LEVEL 9.8 MG/DL (8.3-10.6); CARBON DIOXIDE LEVEL 27.0 MMOL/L (20-31); CHLORIDE LEVEL 99.0 MMOL/L (98-107); CREATININE FOR GFR 1.17 MG/DL (0.70-1.30); GLOMERULAR FILTRATION RATE 65.8 (>42); POTASSIUM SERUM 4.2 MMOL/L (3.5-5.1); SODIUM LEVEL 137.0 MMOL/L (136-145)
[2025-02-28 18:20] LABS: TESTOSTERONE 460.0 NG/DL (241-827)
[2025-02-28 18:53] LABS: ESTIMATED AVERAGE GLUCOSE 123.0 MG/DL (60-110)
== END ==
LOC: M SFHCLERA 07:53
PROVIDERS: ATTEND Internal Medicine
DX: Z00.00 Encounter for general adult medical examination without abnormal findings (principal); I10 Essential (primary) hypertension; E29.1 Testicular hypofunction; Z79.899 Other long term (current) drug therapy